=== PATIENT | male | born 1955 | race Caucasian/White ===

== ENCOUNTER 2017-10-10 11:04 | Inpatient (IN) | payer BC ==
--- NOTE | 2017-10-10 11:49 | EDM.PDOC ---
ED HPI GENERAL MEDICAL PROBLEM - General Chief Complaint: Respiratory Problem Stated Complaint: RIG CAGE ON LT SIDE HURTS Time Seen by Provider: 10/10/17 11:35 Source of Information: Reports: Patient History Limitations: Reports: No Limitations - History of Present Illness INITIAL COMMENTS - FREE TEXT/NARRATIVE: HISTORY AND PHYSICAL: History of present illness: [Patient comes to the emergency room by private vehicle complaining of difficulty breathing and pain to his left ribs. He states that on Tuesday evening he was at a friend's home, when he tripped and fell, hitting his left anterior lateral ribs against the corner of a pool table. He had been drinking that night. Since that time he's had pain to this area of his chest, as well as difficulty breathing. This has gradually worsened over the past couple of days. Is unable to cough up any sputum in his chest due to the pain. Also experiences pain with taking deep breaths. He has a history of COPD but does not smoke currently. He uses albuterol as needed per nebulizer. Unknown fever or chills. Denies any pain in his chest other than to his ribs. Painful to take a deep breath and finds that he is breathing harder than usual. No sore throat runny nose or ear pain. No abdominal discomfort nausea or vomiting. Has had a decreased appetite. No change in his bowel or bladder. Denies muscle and joint aches or pains. No body aches.] Review of systems: As per history of present illness and below otherwise all systems reviewed and negative. Past medical history: As per history of present illness and as reviewed below otherwise noncontributory. Surgical history: As per history of present illness and as reviewed below otherwise noncontributory. Social history: No reported history of drug or alcohol abuse. Family history: As per history of present illness and as reviewed below otherwise noncontributory. Physical exam: VS reviewed by me. 89% on RA. Increases to 92-93% on 8L per face mask. HEENT: Atraumatic, normocephalic. Both eyes are red rimmed. Conjunctiva clear. Mucous membranes moist. Neck supple, no lymphadenopathy, trachea midline Lungs: Diminished breath sounds in L lower lobe, present in apices. Lungs are otherwise clear to auscultation. Heart: S1S2, regular rate and rhythm. Abdomen: Soft, nondistended, nontender. Negative for masses, guarding or rebound. Pelvis: Stable nontender. Genitourinary: Deferred. Rectal: Deferred. Extremities: Atraumatic, negative for cords or calf pain. Neurovascular unremarkable. Neuro: Awake, alert, oriented. Motor and sensory unremarkable throughout. Exam nonfocal. Diagnostics: [CBC, CMP, UA, lactic acid, chest x-ray, blood cultures 2, EKG] Therapeutics: [1 liter NS at 500mL/hour, Levaquin 500mg IV, Levaquin 250mg IV] Impression: [Pneumonia Hypoxia] Plan: [Chest x-ray shows pulmonary infiltrates bilaterally, likely representing pneumonia. WBC 16.73, lactate 1.3. Sodium 135. BUN 23. Creatinine 1.2. Patient' s condition is discussed w/ Dr. Curt Mckeon who accepts patient for inpatient treatment. additional dose of Levaquin 250mg is added to 500mg that is running. ] Definitive disposition and diagnosis as appropriate pending reevaluation and review of above. Left Chest Pain Score (Numeric/FACES): 7 - Related Data Allergies Allergy/AdvReac Type Severity Reaction Status Date / Time No Known Allergies Allergy Verified 05/05/16 10:37 Home Meds: Home Meds Albuterol Sulfate 10/10/17 [History] Aspirin 10/10/17 [History] Past Medical History HEENT History: Reports: Hard of Hearing Respiratory History: Reports: COPD - Past Surgical History Musculoskeletal Surgical History: Reports: Other (See Below) Other Musculoskeletal Surgeries/Procedures:: knuckle replaced R [id number] Social & Family History - Family History Family Medical History: Noncontributory - Tobacco Use Smoking Status *Q: Former Smoker Used Tobacco, but Quit: Yes Month Tobacco Last Used: 08/2009 - Recreational Drug Use Recreational Drug Use: No ED ROS GENERAL - Review of Systems Review Of Systems: ROS reveals no pertinent complaints other than HPI. ED EXAM, GENERAL - Physical Exam Exam: See Below Course - Vital Signs Last Recorded V/S: Last Vital Signs Temp 98.7 F 10/10/17 13:26 Pulse 89 10/10/17 13:26 Resp 18 10/10/17 13:26 BP 115/74 10/10/17 13:26 Pulse Ox 93 L 10/10/17 13:26 - Orders/Labs/Meds Orders: Active Orders 24 hr Category Date Time Status Patient Status [ADT] Stat ADT 10/10/17 13:46 Ordered EKG Documentation Completion [RC] STAT Care 10/10/17 12:21 Active CULTURE BLOOD [BC] Stat Lab 10/10/17 12:50 Received CULTURE BLOOD [BC] Stat Lab 10/10/17 13:00 Received Levofloxacin/Dextrose 5%-Water [Levaquin in D5W 250 MG/ Med 10/10/17 13:46 Ordered 50 ML] 250 mg Premix Bag 1 bag IV ONETIME Sodium Chloride 0.9% [Normal Saline] 1,000 ml Med 10/10/17 12:28 Active IV STAT Blood Culture x2 Reflex Set [OM.PC] Stat Oth 10/10/17 12:17 Ordered Medication Orders Sodium Chloride (Normal Saline) 1,000 mls @ 500 mls/hr IV STAT ONE Stop: 10/10/17 14:27 Last Admin: 10/10/17 13:00 Dose: 500 mls/hr Levofloxacin/Dextrose 250 mg/ (Premix) 50 mls @ 50 mls/hr IV ONETIME ONE Stop: 10/10/17 14:45 Labs: Laboratory Tests 10/10/17 10/10/17 10/10/17 Range/Units 11:43 11:43 13:00 WBC 16.73 H (4.0-11.0) K/uL RBC 5.58 (4.50-5.90) M/uL Hgb 18.3 H (13.0-17.0) g/dL Hct 50.8 H (38.0-50.0) % MCV 91.0 (80.0-98.0) fL MCH 32.8 H (27.0-32.0) pg MCHC 36.0 (31.0-37.0) g/dL RDW Std Deviation 49.5 (28.0-62.0) fl RDW Coeff of Monica 15 (11.0-15.0) % Plt Count 175 (150-400) K/uL MPV 9.00 (7.40-12.00) fL Add Manual Diff YES Neutrophils % (Manual) 91 H (48.0-80.0) % Lymphocytes % (Manual) 5 L (16.0-40.0) % Monocytes % (Manual) 3 (0.0-15.0) % Eosinophils % (Manual) 1 (0.0-7.0) % Nucleated RBC % 0.0 /100WBC Absolute Seg Neuts 15.2 H (1.4-5.7) Lymphocytes # (Manual) 0.8 (0.6-2.4) Monocytes # (Manual) 0.5 (0.0-0.8) Eosinophils # (Manual) 0.2 (0.0-0.7) Nucleated RBCs # 0 K/uL Lactate 1.3 (0.20-2.00) mmol/L Sodium 135 L (136-148) mmol/L Potassium 4.1 (3.5-5.1) mmol/L Chloride 99 (98-107) mmol/L Carbon Dioxide 22.5 (21.0-32.0) mmol/L BUN 23 H (7.0-18.0) mg/dL Creatinine 1.2 (0.8-1.3) mg/dL Est Cr Clr Drug Dosing TNP Estimated GFR (MDRD) > 60.0 ml/min Glucose 85 (74-106) mg/dL Calcium 8.8 (8.5-10.1) mg/dL Total Bilirubin 0.5 (0.2-1.0) mg/dL AST 17 (15-37) U/L ALT 12 L (14-63) U/L Alkaline Phosphatase 84 (46-116) U/L Total Protein 7.1 (6.4-8.2) g/dL Albumin 2.9 L (3.4-5.0) g/dL Globulin 4.2 H (2.0-3.5) g/dL Albumin/Globulin Ratio 0.7 L (1.3-2.8) Meds: Medications Generic Name Dose Route Start Last Admin Trade Name Freq PRN Reason Stop Dose Admin Sodium Chloride 1,000 mls @ 500 mls/hr 10/10/17 12:28 10/10/17 13:00 Normal Saline IV 10/10/17 14:27 500 mls/hr STAT ONE Administration Levofloxacin/Dextrose 250 mg/ 50 mls @ 50 mls/hr 10/10/17 13:46 Premix IV 10/10/17 14:45 ONETIME ONE Discontinued Medications Generic Name Dose Route Start Last Admin Trade Name Freq PRN Reason Stop Dose Admin Levofloxacin/Dextrose 500 mg/ 100 mls @ 100 mls/hr 10/10/17 12:28 10/10/17 12 :59 Premix IV 10/10/17 13:27 100 mls/hr ONETIME ONE Administration Departure - Departure Time of Disposition: 13:50 Disposition: Admitted As Inpatient 66 Condition: Good Clinical Impression: Pneumonia, Hypoxia - Discharge Information Referrals: Partha Lopez MD [Primary Care Provider] - Forms: ED Department Discharge - My Orders Last 24 Hours: My Active Orders 10/10/17 12:17 Blood Culture x2 Reflex Set [OM.PC] Stat 10/10/17 12:21 EKG Documentation Completion [RC] STAT 10/10/17 12:28 Sodium Chloride 0.9% [Normal Saline] 1,000 ml IV STAT 10/10/17 12:50 CULTURE BLOOD [BC] Stat 10/10/17 13:00 CULTURE BLOOD [BC] Stat 10/10/17 13:46 Patient Status [ADT] Stat Levofloxacin/Dextrose 5%-Water [Levaquin in D5W 250 MG/50 ML] 250 mg Premix Bag 1 bag IV ONETIME - Assessment/Plan Last 24 Hours: My Active Orders 10/10/17 12:17 Blood Culture x2 Reflex Set [OM.PC] Stat 10/10/17 12:21 EKG Documentation Completion [RC] STAT 10/10/17 12:28 Sodium Chloride 0.9% [Normal Saline] 1,000 ml IV STAT 10/10/17 12:50 CULTURE BLOOD [BC] Stat 10/10/17 13:00 CULTURE BLOOD [BC] Stat 10/10/17 13:46 Patient Status [ADT] Stat Levofloxacin/Dextrose 5%-Water [Levaquin in D5W 250 MG/50 ML] 250 mg Premix Bag 1 bag IV ONETIME
--- NOTE | 2017-10-10 12:15 | CR ---
EXAMINATION: Two-view chest (PA and Lateral views). HISTORY: Shortness of breath. FINDINGS: The trachea is midline. The cardiomediastinal silhouette is within normal limits. Patchy infiltrate i s noted within the right perihilar distribution and lung bases, left greater than right. There is lik wilder a small left pleural effusion however predominantly consolidation. Osseous structures appear unremarkable. IMPRESSION: Pulmonary infiltrates bilaterally most prominently in within the left lung base. Likely represents a pneumonia. Small component of pleural effusion is not excluded.
[2017-10-10] MEDS ORDERED: Levofloxacin/Dextrose 5%-Water 500 MG in Premix Bag 1 BAG IV ONE (12:28)
[2017-10-10] MEDS ORDERED: Sodium Chloride 0.9% 1,000 ML IV ONE (12:28)
[2017-10-10 12:35] LABS: CHLORIDE,CL 99 mmol/L (98-107); SODIUM,NA 135 mmol/L (136-148)
[2017-10-10] MEDS ORDERED: Levofloxacin/Dextrose 5%-Water 250 MG in Premix Bag 1 BAG IV ONE (13:46)
[2017-10-10] MEDS ORDERED: Sodium Chloride 0.9% 10 ML Syringe FLUSH PRN (17:23)
[2017-10-10] MEDS ORDERED: Albuterol/Ipratropium 3.0-0.5 MG/3 ML Neb Soln NEB PRN (17:23)
[2017-10-10] MEDS ORDERED: Ondansetron 4 MG/2 ML SDV IVPUSH PRN (17:23)
[2017-10-10] MEDS ORDERED: Sodium Chloride 0.9% 2.5 ML Syringe FLUSH PRN (17:23)
[2017-10-10] MEDS: Enoxaparin 40 MG/0.4 ML Syringe SUBCUT SCH (17:47)
[2017-10-10] MEDS: Morphine 2 MG/ML Syringe IVPUSH PRN (17:47)
[2017-10-10] MEDS: Sodium Chloride 0.9% 1,000 ML IV SCH (17:49)
--- NOTE | 2017-10-10 18:17 | PCM.HP ---
H&P History of Present Illness - General Date of Service: 10/10/17 Admit Problem/Dx: Admission Diagnosis/Problem Admission Diagnosis/Problem Pneumonia - History of Present Illness Initial Comments - Free Text/Narative: 52-year-old male who presents today secondary to feeling unwell, shortness of breath, elevated temperatures that has been ongoing sometime. Patient in February was diagnosed with left lower lung base community-acquired pneumonia for which he received treatment. However due to the fact that he was having lower chest pain that was similar to his diagnosis back in her life, as a result he came into the ER today for which he was found to have an elevated WBC count, chest x-ray showed bilateral lower lung base infection. Patient in the ER was then given IV Levaquin and subsequently admitted due to increased oxygen requirement, and IV antibiotics for his bilateral lower lung base pneumonia. Left Chest Pain Score (Numeric/FACES): 7 - Related Data Allergies/Adverse Reactions: Allergies Allergy/AdvReac Type Severity Reaction Status Date / Time No Known Allergies Allergy Verified 05/05/16 10:37 Home Medications: Home Meds Albuterol Sulfate 10/10/17 [History] Aspirin 10/10/17 [History] Past Medical History HEENT History: Reports: Hard of Hearing Respiratory History: Reports: COPD - Past Surgical History Respiratory Surgical History: Reports: None Musculoskeletal Surgical History: Reports: Other (See Below) Other Musculoskeletal Surgeries/Procedures:: knuckle replaced R [id number] Social & Family History - Family History Family Medical History: Noncontributory - Tobacco Use Smoking Status *Q: Former Smoker Used Tobacco, but Quit: Yes Month Tobacco Last Used: 8 years ago Second Hand Smoke Exposure: No - Caffeine Use Caffeine Use: Reports: Coffee - Recreational Drug Use Recreational Drug Use: No H&P Review of Systems - Review of Systems: Review Of Systems: ROS reveals no pertinent complaints other than HPI. Exam - Exam Exam: See Below - Vital Signs Vital Signs: Last Vital Signs Temp 37.2 C 10/10/17 14:35 Pulse 105 H 10/10/17 14:35 Resp 20 10/10/17 14:35 BP 133/79 10/10/17 14:35 Pulse Ox 95 10/10/17 17:26 Weight: 66.633 kg - Exam Quality Assessment: Supplemental Oxygen General: Alert, Oriented, Cooperative, Mild Distress Lungs: Wheezing Cardiovascular: Regular Rate, Regular Rhythm GI/Abdominal Exam: Normal Bowel Sounds Extremities: Non-Tender, No Pedal Edema - Patient Data Result Diagrams: 10/10/17 11:43 10/10/17 11:43 *Q Meaningful Use (ADM) - VTE *Q VTE Criteria *Q: - Stroke *Q Stroke Criteria *Q: - AMI *Q AMI Criteria *Q: Problem List Initiated/Reviewed/Updated: Yes Orders Last 24hrs: Active Orders 24 hr Category Date Time Status Patient Status [ADT] Routine ADT 10/10/17 17:24 Active Antiembolic Devices [RC] PER UNIT ROUTINE Care 10/10/17 17:27 Active Height and Weight [RC] UPON Care 10/10/17 17:23 Active Intake and Output [RC] QSHIFT Care 10/10/17 17:26 Active Notify Provider Vital Signs [RC] ASDIRECTED Care 10/10/17 17:26 Active Oxygen Therapy [RC] PRN Care 10/10/17 17:24 Active Pulse Oximetry [RC] PRN Care 10/10/17 17:26 Active RT Aerosol Therapy [RC] ASDIRECTED Care 10/10/17 17:30 Active Up With Assistance [RC] ASDIRECTED Care 10/10/17 17:23 Active VTE/DVT Education [RC] PER UNIT ROUTINE Care 10/10/17 17:24 Active Vital Signs [RC] Q4H Care 10/10/17 17:24 Active Regular Diet [DIET] Diet 10/10/17 Dinner Active CBC WITH AUTO DIFF [HEME] AM Lab 10/11/17 05:11 Ordered COMPREHENSIVE METABOLIC PN,CMP [CHEM] AM Lab 10/11/17 05:11 Ordered CULTURE SPUTUM + SMEAR [RM] Routine Lab 10/10/17 17:23 Ordered Acetaminophen [Tylenol] Med 10/10/17 17:23 Active 650 mg PO Q4H PRN Albuterol/Ipratropium [DuoNeb 3.0-0.5 MG/3 ML] Med 10/10/17 17:23 Active 3 ml NEB Q4HRRT PRN Enoxaparin [Lovenox] Med 10/10/17 17:30 Active 40 mg SUBCUT Q24H Morphine Med 10/10/17 17:23 Active 2 mg IVPUSH Q2H PRN Ondansetron [Zofran] Med 10/10/17 17:23 Active 4 mg IVPUSH Q4H PRN Sodium Chloride 0.9% [Normal Saline] 1,000 ml Med 10/10/17 17:30 Active IV ASDIRECTED Sodium Chloride 0.9% [Saline Flush] Med 10/10/17 17:23 Active 10 ml FLUSH ASDIRECTED PRN Sodium Chloride 0.9% [Saline Flush] Med 10/10/17 17:23 Active 2.5 ml FLUSH ASDIRECTED PRN Peripheral IV Insertion Adult [OM.PC] Routine Oth 10/10/17 17:23 Ordered Saline Lock Insert [OM.PC] Routine Oth 10/10/17 17:23 Ordered Sequential Compression Device [OM.PC] Per Unit Routine Oth 10/10/17 17:27 Ordered Resuscitation Status Routine Resus Stat 10/10/17 17:23 Ordered Medication Orders Acetaminophen (Tylenol) 650 mg PO Q4H PRN PRN Reason: Pain (Mild 1-3)/fever Albuterol/Ipratropium (Duoneb 3.0-0.5 Mg/3 Ml) 3 ml NEB Q4HRRT PRN PRN Reason: Shortness Of Breath/wheezing Enoxaparin Sodium (Lovenox) 40 mg SUBCUT Q24H [facility] Last Admin: 10/10/17 17:47 Dose: 40 mg Sodium Chloride (Normal Saline) 1,000 mls @ 125 mls/hr IV ASDIRECTED [facility] Last Admin: 10/10/17 17:49 Dose: 125 mls/hr Morphine Sulfate (Morphine) 2 mg IVPUSH Q2H PRN PRN Reason: Pain (severe 7-10) Last Admin: 10/10/17 17:47 Dose: 2 mg Ondansetron HCl (Zofran) 4 mg IVPUSH Q4H PRN PRN Reason: Nausea/Vomiting Sodium Chloride (Saline Flush) 10 ml FLUSH ASDIRECTED PRN PRN Reason: Keep Vein Open Sodium Chloride (Saline Flush) 2.5 ml FLUSH ASDIRECTED PRN PRN Reason: Keep Vein Open Assessment/Plan Comment:: 62-year-old male presenting with shortness of breath, chest pain, elevated WBC count secondary to a bilateral lower lung base infiltrate likely infectious in nature. To receive Levaquin IV 750 mg Trend WBC and CBC to ensure back to baseline values O2 support secondary to shortness of breath and increased requirement due to infectious process. I'll continue to follow.
[2017-10-11] MEDS: Morphine 2 MG/ML Syringe IVPUSH PRN ×2 (00:13→08:28)
[2017-10-11] MEDS: Sodium Chloride 0.9% 1,000 ML IV SCH ×2 (02:12→10:17)
[2017-10-11] MEDS: Acetaminophen 325 MG Tab PO PRN ×3 (03:29→21:35)
[2017-10-11 06:06] LABS: CHLORIDE,CL 98 mmol/L (98-107); SODIUM,NA 131 mmol/L (136-148)
[2017-10-11] MEDS: Levofloxacin/Dextrose 5%-Water 750 MG in Premix Bag 1 BAG IV SCH (10:21)
[2017-10-11] MEDS ORDERED: Potassium Chloride 20 MEQ Tab.ER PO ONE ×2 (10:44→13:15)
[2017-10-11] MEDS ORDERED: Magnesium Sulfate/Water 4 GM in Premix Bag 1 BAG IV ONE (10:44)
--- NOTE | 2017-10-11 12:30 | PCM.PN ---
- General Info Date of Service: 10/11/17 Subjective Update: Symptomatically patient is doing slightly better than he did yesterday on presentation. He still having left lower back/chest pain secondary to likely pneumonia infectious process as well as fall on the left side. Patient's vital signs are stable, patient is afebrile, patient does not appear to be in any acute distress at the moment. - Review of Systems General: Reports: Weakness Gastrointestinal: Reports: Abdominal Pain - Patient Data Vitals - Most Recent: Last Vital Signs Temp 37.2 C 10/11/17 11:53 Pulse 88 10/11/17 11:53 Resp 22 H 10/11/17 11:53 BP 110/72 10/11/17 11:53 Pulse Ox 91 L 10/11/17 11:53 Weight - Most Recent: 66.633 kg I&O - Last 24 Hours: Intake & Output 10/10/17 10/11/17 10/11/17 22:59 06:59 14:59 Intake Total 150 999 Output Total 180 Balance -30 999 Lab Results Last 24 Hours: Laboratory Results - last 24 hr 10/11/17 10/11/17 10/11/17 Range/Units 05:08 05:08 05:46 WBC 12.73 H (4.0-11.0) K/uL RBC 4.68 (4.50-5.90) M/uL Hgb 14.9 (13.0-17.0) g/dL Hct 42.9 (38.0-50.0) % MCV 91.7 (80.0-98.0) fL MCH 31.8 (27.0-32.0) pg MCHC 34.7 (31.0-37.0) g/dL RDW Std Deviation 50.1 (28.0-62.0) fl RDW Coeff of Monica 15 (11.0-15.0) % Plt Count 170 (150-400) K/uL MPV 9.30 (7.40-12.00) fL Neut % (Auto) 84.5 H (48.0-80.0) % Lymph % (Auto) 4.9 L (16.0-40.0) % Gilmer % (Auto) 10.2 (0.0-15.0) % Eos % (Auto) 0.2 (0.0-7.0) % Baso % (Auto) 0.2 (0.0-1.5) % Neut # (Auto) 10.8 H (1.4-5.7) K/uL Lymph # (Auto) 0.6 (0.6-2.4) K/uL Gilmer # (Auto) 1.3 H (0.0-0.8) K/uL Eos # (Auto) 0.0 (0.0-0.7) K/uL Baso # (Auto) 0.0 (0.0-0.1) K/uL Nucleated RBC % 0.0 /100WBC Nucleated RBCs # 0 K/uL Sodium 131 L (136-148) mmol/L Potassium 3.2 L (3.5-5.1) mmol/L Chloride 98 (98-107) mmol/L Carbon Dioxide 20.6 L (21.0-32.0) mmol/L BUN 18 (7.0-18.0) mg/dL Creatinine 1.0 (0.8-1.3) mg/dL Est Cr Clr Drug Dosing 72.19 mL/min Estimated GFR (MDRD) > 60.0 ml/min Glucose 107 H (74-106) mg/dL Calcium 8.0 L (8.5-10.1) mg/dL Magnesium 1.4 L (1.5-2.0) mg/dL Total Bilirubin 0.8 (0.2-1.0) mg/dL AST 30 (15-37) U/L ALT 25 (14-63) U/L Alkaline Phosphatase 113 (46-116) U/L Total Protein 5.9 L (6.4-8.2) g/dL Albumin 2.2 L (3.4-5.0) g/dL Globulin 3.7 H (2.0-3.5) g/dL Albumin/Globulin Ratio 0.6 L (1.3-2.8) Phu Results Last 24 Hours: Microbiology 10/10/17 20:35 Gram Stain - Preliminary Sputum - Expectorated Med Orders - Current: Current Medications Acetaminophen (Tylenol) 650 mg PO Q4H PRN PRN Reason: Pain (Mild 1-3)/fever Last Admin: 10/11/17 03:29 Dose: 650 mg Albuterol/Ipratropium (Duoneb 3.0-0.5 Mg/3 Ml) 3 ml NEB Q4HRRT PRN PRN Reason: Shortness Of Breath/wheezing Enoxaparin Sodium (Lovenox) 40 mg SUBCUT Q24H [facility] Last Admin: 10/10/17 17:47 Dose: 40 mg Levofloxacin/Dextrose 750 mg/ (Premix) 150 mls @ 100 mls/hr IV Q24H [facility] Last Admin: 10/11/17 10:21 Dose: 100 mls/hr Magnesium Sulfate 4 gm/ Premix 100 mls @ 50 mls/hr IV ONETIME ONE Stop: 10/11/17 12:43 Morphine Sulfate (Morphine) 2 mg IVPUSH Q2H PRN PRN Reason: Pain (severe 7-10) Last Admin: 10/11/17 08:28 Dose: 2 mg Ondansetron HCl (Zofran) 4 mg IVPUSH Q4H PRN PRN Reason: Nausea/Vomiting Sodium Chloride (Saline Flush) 10 ml FLUSH ASDIRECTED PRN PRN Reason: Keep Vein Open Sodium Chloride (Saline Flush) 2.5 ml FLUSH ASDIRECTED PRN PRN Reason: Keep Vein Open Discontinued Medications Levofloxacin/Dextrose 500 mg/ (Premix) 100 mls @ 100 mls/hr IV ONETIME ONE Stop: 10/10/17 13:27 Last Admin: 10/10/17 12:59 Dose: 100 mls/hr Sodium Chloride (Normal Saline) 1,000 mls @ 500 mls/hr IV STAT ONE Stop: 10/10/17 14:27 Last Admin: 10/10/17 13:00 Dose: 500 mls/hr Levofloxacin/Dextrose 250 mg/ (Premix) 50 mls @ 50 mls/hr IV ONETIME ONE Stop: 10/10/17 14:45 Last Admin: 10/10/17 14:20 Dose: 50 mls/hr Sodium Chloride (Normal Saline) 1,000 mls @ 125 mls/hr IV ASDIRECTED [facility] Last Admin: 10/11/17 10:17 Dose: 125 mls/hr Potassium Chloride (Klor-Con M20) 40 meq PO ONETIME ONE Stop: 10/11/17 10:45 - Exam Quality Assessment: Supplemental Oxygen General: Alert, Oriented, Cooperative, No Acute Distress Neck: Supple Lungs: Clear to Auscultation, Decreased Breath Sounds, Other (On palpation. On the left lower chest and very tearful and infectious process) Cardiovascular: Regular Rate, Regular Rhythm GI/Abdominal Exam: Normal Bowel Sounds Extremities: Normal Range of Motion, Non-Tender, No Pedal Edema - Problem List Review Problem List Initiated/Reviewed/Updated: Yes - My Orders Last 24 Hours: My Active Orders 10/10/17 17:23 Height and Weight [RC] UPON Up With Assistance [RC] ASDIRECTED Acetaminophen [Tylenol] 650 mg PO Q4H PRN Albuterol/Ipratropium [DuoNeb 3.0-0.5 MG/3 ML] 3 ml NEB Q4HRRT PRN Morphine 2 mg IVPUSH Q2H PRN Ondansetron [Zofran] 4 mg IVPUSH Q4H PRN Sodium Chloride 0.9% [Saline Flush] 10 ml FLUSH ASDIRECTED PRN Sodium Chloride 0.9% [Saline Flush] 2.5 ml FLUSH ASDIRECTED PRN Peripheral IV Insertion Adult [OM.PC] Routine Saline Lock Insert [OM.PC] Routine Resuscitation Status Routine 10/10/17 17:24 Patient Status [ADT] Routine Oxygen Therapy [RC] PRN VTE/DVT Education [RC] PER UNIT ROUTINE Vital Signs [RC] Q4H 10/10/17 17:26 Intake and Output [RC] QSHIFT Notify Provider Vital Signs [RC] ASDIRECTED Pulse Oximetry [RC] PRN 10/10/17 17:27 Antiembolic Devices [RC] PER UNIT ROUTINE Sequential Compression Device [OM.PC] Per Unit Routine 10/10/17 17:30 RT Aerosol Therapy [RC] ASDIRECTED Enoxaparin [Lovenox] 40 mg SUBCUT Q24H 10/10/17 20:35 CULTURE SPUTUM + SMEAR [RM] Routine 10/11/17 09:30 Levofloxacin/Dextrose 5%-Water [Levaquin in D5W 750 MG/150 ML] 750 mg Premix Bag 1 bag IV Q24H - Plan Plan:: 62-year-old male presenting with shortness of breath, chest pain, elevated WBC count secondary to a bilateral lower lung base infiltrate likely infectious in nature. To receive Levaquin IV 750 mg Patient's sputum culture does appear to be growing gram-positive and possibly gram-negative bacteria. Sputum sample was not the greatest we will await for colonization prior to deciding whether to switch up antibiotic regimen. However if the patient does have unstable vital signs, spikes in elevated temperature then we may decide to broaden the patient's antibiotic coverage. Patient has hypokalemia/hypomagnesemia -40 mEq one-time potassium chloride oral tablet -4 g IV mag -Shall reassess in the a.m. to ensure hypokalemia and hypomagnesemia are appropriate Trend WBC and CBC to ensure back to baseline values O2 support secondary to shortness of breath and increased requirement due to infectious process. I'll continue to follow.
[2017-10-11] MEDS: Enoxaparin 40 MG/0.4 ML Syringe SUBCUT SCH (17:55)
[2017-10-12 06:02] LABS: CHLORIDE,CL 100 mmol/L (98-107); SODIUM,NA 134 mmol/L (136-148)
[2017-10-12] MEDS: Acetaminophen 325 MG Tab PO PRN ×3 (07:39→17:22)
[2017-10-12] MEDS: Levofloxacin/Dextrose 5%-Water 750 MG in Premix Bag 1 BAG IV SCH (09:12)
--- NOTE | 2017-10-12 10:48 | PCM.PN ---
- General Info Date of Service: 10/12/17 Subjective Update: Patient is improving from a chest discomfort standpoint. He is using his spirometry often and is ambulating. Currently still on O2 of 4 liters, IV levaquin, and Duo nebs prn. Patient denies any shortness of breath, nausea, vomiting, diarrhea. - Review of Systems General: Reports: Fatigue Pulmonary: Reports: Sputum - Patient Data Vitals - Most Recent: Last Vital Signs Temp 37.6 C 10/12/17 07:43 Pulse 96 10/12/17 07:43 Resp 18 10/12/17 07:43 BP 115/77 10/12/17 07:43 Pulse Ox 90 L 10/12/17 07:43 Weight - Most Recent: 66.633 kg I&O - Last 24 Hours: Intake & Output 10/11/17 10/12/17 10/12/17 22:59 06:59 14:59 Intake Total 1200 600 Output Total 1325 700 Balance -125 -100 Lab Results Last 24 Hours: Laboratory Results - last 24 hr 10/12/17 10/12/17 Range/Units 04:59 04:59 WBC 11.39 H (4.0-11.0) K/uL RBC 5.00 (4.50-5.90) M/uL Hgb 16.0 (13.0-17.0) g/dL Hct 45.9 (38.0-50.0) % MCV 91.8 (80.0-98.0) fL MCH 32.0 (27.0-32.0) pg MCHC 34.9 (31.0-37.0) g/dL RDW Std Deviation 49.3 (28.0-62.0) fl RDW Coeff of Monica 15 (11.0-15.0) % Plt Count 180 (150-400) K/uL MPV 9.40 (7.40-12.00) fL Neut % (Auto) 81.4 H (48.0-80.0) % Lymph % (Auto) 5.8 L (16.0-40.0) % [place] % (Auto) 12.2 (0.0-15.0) % Eos % (Auto) 0.4 (0.0-7.0) % Baso % (Auto) 0.2 (0.0-1.5) % Neut # (Auto) 9.3 H (1.4-5.7) K/uL Lymph # (Auto) 0.7 (0.6-2.4) K/uL [place] # (Auto) 1.4 H (0.0-0.8) K/uL Eos # (Auto) 0.1 (0.0-0.7) K/uL Baso # (Auto) 0.0 (0.0-0.1) K/uL Nucleated RBC % 0.0 /100WBC Nucleated RBCs # 0 K/uL Sodium 134 L (136-148) mmol/L Potassium 3.6 (3.5-5.1) mmol/L Chloride 100 (98-107) mmol/L Carbon Dioxide 23.6 (21.0-32.0) mmol/L BUN 15 (7.0-18.0) mg/dL Creatinine 0.9 (0.8-1.3) mg/dL Est Cr Clr Drug Dosing 80.21 mL/min Estimated GFR (MDRD) > 60.0 ml/min Glucose 77 (74-106) mg/dL Calcium 8.6 (8.5-10.1) mg/dL Total Bilirubin 0.8 (0.2-1.0) mg/dL AST 27 (15-37) U/L ALT 28 (14-63) U/L Alkaline Phosphatase 130 H (46-116) U/L Total Protein 6.5 (6.4-8.2) g/dL Albumin 2.2 L (3.4-5.0) g/dL Globulin 4.3 H (2.0-3.5) g/dL Albumin/Globulin Ratio 0.5 L (1.3-2.8) Phu Results Last 24 Hours: Microbiology 10/10/17 20:35 Gram Stain - Final Sputum - Expectorated Sputum Culture - Final Normal Respiratory Luh YEAST Med Orders - Current: Current Medications Acetaminophen (Tylenol) 650 mg PO Q4H PRN PRN Reason: Pain (Mild 1-3)/fever Last Admin: 10/12/17 07:39 Dose: 650 mg Albuterol/Ipratropium (Duoneb 3.0-0.5 Mg/3 Ml) 3 ml NEB Q4HRRT PRN PRN Reason: Shortness Of Breath/wheezing Enoxaparin Sodium (Lovenox) 40 mg SUBCUT Q24H [facility] Last Admin: 10/11/17 17:55 Dose: 40 mg Levofloxacin/Dextrose 750 mg/ (Premix) 150 mls @ 100 mls/hr IV Q24H [facility] Last Admin: 10/12/17 09:12 Dose: 100 mls/hr Morphine Sulfate (Morphine) 2 mg IVPUSH Q2H PRN PRN Reason: Pain (severe 7-10) Last Admin: 10/11/17 08:28 Dose: 2 mg Ondansetron HCl (Zofran) 4 mg IVPUSH Q4H PRN PRN Reason: Nausea/Vomiting Sodium Chloride (Saline Flush) 10 ml FLUSH ASDIRECTED PRN PRN Reason: Keep Vein Open Sodium Chloride (Saline Flush) 2.5 ml FLUSH ASDIRECTED PRN PRN Reason: Keep Vein Open Discontinued Medications Levofloxacin/Dextrose 500 mg/ (Premix) 100 mls @ 100 mls/hr IV ONETIME ONE Stop: 10/10/17 13:27 Last Admin: 10/10/17 12:59 Dose: 100 mls/hr Sodium Chloride (Normal Saline) 1,000 mls @ 500 mls/hr IV STAT ONE Stop: 10/10/17 14:27 Last Admin: 10/10/17 13:00 Dose: 500 mls/hr Levofloxacin/Dextrose 250 mg/ (Premix) 50 mls @ 50 mls/hr IV ONETIME ONE Stop: 10/10/17 14:45 Last Admin: 10/10/17 14:20 Dose: 50 mls/hr Sodium Chloride (Normal Saline) 1,000 mls @ 125 mls/hr IV ASDIRECTED [facility] Last Admin: 10/11/17 10:17 Dose: 125 mls/hr Magnesium Sulfate 4 gm/ Premix 100 mls @ 50 mls/hr IV ONETIME ONE Stop: 10/11/17 12:43 Last Admin: 10/11/17 13:10 Dose: 50 mls/hr Potassium Chloride (Klor-Con M20) 40 meq PO ONETIME ONE Stop: 10/11/17 13:16 Last Admin: 10/11/17 13:10 Dose: 40 meq - Exam Quality Assessment: Supplemental Oxygen General: Alert, Oriented, Cooperative Neck: Supple Lungs: Clear to Auscultation, Normal Respiratory Effort, Decreased Breath Sounds Cardiovascular: Regular Rate, Regular Rhythm GI/Abdominal Exam: Normal Bowel Sounds Extremities: Normal Inspection, Normal Range of Motion, Non-Tender - Problem List Review Problem List Initiated/Reviewed/Updated: Yes - Plan Plan:: 62-year-old male presenting with shortness of breath, chest pain, elevated WBC count secondary to a bilateral lower lung base infiltrate likely infectious in nature. To receive Levaquin IV 750 mg Patient's sputum culture is growing normal respiratory luh. She'll continue the Levaquin 750 daily. At this point in time patient is still requiring 4 L of oxygen, we will continue to titrate until he gets his baseline of rheumatoid air. Patient is encouraged to walk/ambulate. Hypokalemia/hypomagnesemia- now resolved Trend WBC and CBC to ensure back to baseline values O2 support secondary to shortness of breath and increased requirement due to infectious process. I'll continue to follow.
[2017-10-12] MEDS: Enoxaparin 40 MG/0.4 ML Syringe SUBCUT SCH (17:22)
[2017-10-13] MEDS: Acetaminophen 325 MG Tab PO PRN ×2 (00:43→12:28)
[2017-10-13] MEDS: Levofloxacin/Dextrose 5%-Water 750 MG in Premix Bag 1 BAG IV SCH (09:28)
[2017-10-13 10:29] LABS: CHLORIDE,CL 97 mmol/L (98-107); SODIUM,NA 134 mmol/L (136-148)
--- NOTE | 2017-10-13 11:52 | PCM.DCSUM1 ---
<Sylvester Hogan Z - Last Filed: 10/13/17 18:24> Discharge Summary - Hospital Course HPI Initial Comments: Discharge Summary Date of admission: 10/10/2017 Date of discharge: 10/13/2017 Admitting diagnosis: #1. Shortness of breath, chest pain, leukocytosis secondary to bilateral lower lung infiltrate #2. #3. #4. #5. Discharge diagnoses: #1. Bilateral lower lung pneumonia now resolving #2. Shortness of breath improving #3. #4. #5. Consultations: None Procedures: None Hospitalization course: Patient was admitted to the floor secondary to bilateral lower lobe pneumonia. Patient was put on Levaquin for his bacterial symptoms. Patient also was requiring dual nebs when necessary as well as increased oxygen support of 4 L. Patient progressively did better from a infectious standpoint. His leukocytosis resolved, his primary difficulty stabilize with shortness of breath and O2 requirement which did take another day until it was fully resolved. On the date of discharge on 10/13/2017 patient was on room air, his leukocytosis had resolved, and he felt that he was stable enough to go home. Patient was sent home on Levaquin for another 5 days, continuation of his dual nebs that were prescribed to him by his PCP, an additional prescription of an albuterol inhaler as well as a long-acting laba/ inhaled corticosteroid since the patient did indicate just prior to being discharged that he was requiring the dual nebs at times to 3 times a day so it was felt that the patient likely needed increased support and a proper outpatient evaluation of his pulmonary symptoms to assess for uncontrolled asthma versus COPD. Disposition on discharge: Home Condition on discharge: Stable Discharge medications: Levaquin 750 daily for 5 days, albuterol inhaler, Advair , continuation of dual nebs Follow-up instructions: Follow-up with primary care physician Dr. Lopez - Discharge Data Discharge Date: 10/13/17 Discharge Disposition: Home, Self-Care 01 Condition: Fair - Patient Instructions Diet: Usual Diet as Tolerated Activity: As Tolerated Driving: May Drive Today Showering/Bathing: May Shower Notify Provider of: Fever, Increased Pain, Swelling and Redness, Drainage, Nausea and/or Vomiting - Discharge Plan Prescriptions/Med Rec: Albuterol [IJD: Albuterol HFA] 1 puff .XX Q4H PRN 30 Days #8 gm PRN Reason: Shortness Of Breath Fluticasone/Salmeterol [Advair Hfa 230-21 Mcg Inhaler] 1 puff IH BID 30 Days #1 aer.w.adap Levofloxacin [Levaquin] 750 mg PO DAILY 5 Days #5 tablet Home Medications: Home Meds Albuterol Sulfate 10/10/17 [History] Aspirin 10/10/17 [History] Albuterol [IJD: Albuterol HFA] 1 puff .XX Q4H PRN 30 Days #8 gm 10/13/17 [Rx] Fluticasone/Salmeterol [Advair Hfa 230-21 Mcg Inhaler] 1 puff IH BID 30 Days #1 aer.w.adap 10/13/17 [Rx] Levofloxacin [Levaquin] 750 mg PO DAILY 5 Days #5 tablet 10/13/17 [Rx] Patient Handouts: Albuterol inhalation powder, Fluticasone; Salmeterol inhalation powder, Levofloxacin tablets, Community-Acquired Pneumonia, Adult, [id number] - Discharge Summary/Plan Comment DC Time >30 min.: No - Patient Data Vitals - Most Recent: Last Vital Signs Temp 37.1 C 10/13/17 07:31 Pulse 96 10/13/17 07:31 Resp 20 10/13/17 07:31 BP 108/80 10/13/17 07:31 Pulse Ox 90 L 10/13/17 07:31 Weight - Most Recent: 66.633 kg I&O - Last 24 hours: Intake & Output 10/12/17 10/13/17 10/13/17 22:59 06:59 14:59 Intake Total 1469 600 150 Output Total 860 5 Balance 609 595 150 Lab Results - Last 24 hrs: Laboratory Results - last 24 hr 10/13/17 10/13/17 Range/Units 09:39 09:39 WBC 13.22 H (4.0-11.0) K/uL RBC 4.77 (4.50-5.90) M/uL Hgb 15.2 (13.0-17.0) g/dL Hct 43.7 (38.0-50.0) % MCV 91.6 (80.0-98.0) fL MCH 31.9 (27.0-32.0) pg MCHC 34.8 (31.0-37.0) g/dL RDW Std Deviation 48.4 (28.0-62.0) fl RDW Coeff of Monica 14 (11.0-15.0) % Plt Count 191 (150-400) K/uL MPV 8.90 (7.40-12.00) fL Neut % (Auto) 85.0 H (48.0-80.0) % Lymph % (Auto) 2.8 L (16.0-40.0) % [place] % (Auto) 11.8 (0.0-15.0) % Eos % (Auto) 0.2 (0.0-7.0) % Baso % (Auto) 0.2 (0.0-1.5) % Neut # (Auto) 11.2 H (1.4-5.7) K/uL Lymph # (Auto) 0.4 L (0.6-2.4) K/uL [place] # (Auto) 1.6 H (0.0-0.8) K/uL Eos # (Auto) 0.0 (0.0-0.7) K/uL Baso # (Auto) 0.0 (0.0-0.1) K/uL Nucleated RBC % 0.0 /100WBC Nucleated RBCs # 0 K/uL Sodium 134 L (136-148) mmol/L Potassium 3.5 (3.5-5.1) mmol/L Chloride 97 L (98-107) mmol/L Carbon Dioxide 28.5 (21.0-32.0) mmol/L BUN 13 (7.0-18.0) mg/dL Creatinine 0.9 (0.8-1.3) mg/dL Est Cr Clr Drug Dosing 80.21 mL/min Estimated GFR (MDRD) > 60.0 ml/min Glucose 155 H (74-106) mg/dL Calcium 8.1 L (8.5-10.1) mg/dL Total Bilirubin 0.7 (0.2-1.0) mg/dL AST 24 (15-37) IU/L ALT 31 (14-63) IU/L Alkaline Phosphatase 144 H (46-116) U/L Total Protein 5.3 L (6.4-8.2) g/dL Albumin 2.1 L (3.4-5.0) g/dL Globulin 3.2 (2.0-3.5) g/dL Albumin/Globulin Ratio 0.7 L (1.3-2.8) OTONIEL Results - Last 24 hrs: Microbiology 10/10/17 20:35 Gram Stain - Final Sputum - Expectorated Sputum Culture - Final Normal Respiratory [place] YEAST Med Orders - Current: Current Medications Acetaminophen (Tylenol) 650 mg PO Q4H PRN PRN Reason: Pain (Mild 1-3)/fever Last Admin: 10/13/17 00:43 Dose: 650 mg Albuterol/Ipratropium (Duoneb 3.0-0.5 Mg/3 Ml) 3 ml NEB Q4HRRT PRN PRN Reason: Shortness Of Breath/wheezing Enoxaparin Sodium (Lovenox) 40 mg SUBCUT Q24H [facility] Last Admin: 10/12/17 17:22 Dose: 40 mg Levofloxacin/Dextrose 750 mg/ (Premix) 150 mls @ 100 mls/hr IV Q24H [facility] Last Admin: 10/13/17 09:28 Dose: 100 mls/hr Morphine Sulfate (Morphine) 2 mg IVPUSH Q2H PRN PRN Reason: Pain (severe 7-10) Last Admin: 10/11/17 08:28 Dose: 2 mg Ondansetron HCl (Zofran) 4 mg IVPUSH Q4H PRN PRN Reason: Nausea/Vomiting Sodium Chloride (Saline Flush) 10 ml FLUSH ASDIRECTED PRN PRN Reason: Keep Vein Open Sodium Chloride (Saline Flush) 2.5 ml FLUSH ASDIRECTED PRN PRN Reason: Keep Vein Open Discontinued Medications Levofloxacin/Dextrose 500 mg/ (Premix) 100 mls @ 100 mls/hr IV ONETIME ONE Stop: 10/10/17 13:27 Last Admin: 10/10/17 12:59 Dose: 100 mls/hr Sodium Chloride (Normal Saline) 1,000 mls @ 500 mls/hr IV STAT ONE Stop: 10/10/17 14:27 Last Admin: 10/10/17 13:00 Dose: 500 mls/hr Levofloxacin/Dextrose 250 mg/ (Premix) 50 mls @ 50 mls/hr IV ONETIME ONE Stop: 10/10/17 14:45 Last Admin: 10/10/17 14:20 Dose: 50 mls/hr Sodium Chloride (Normal Saline) 1,000 mls @ 125 mls/hr IV ASDIRECTED [facility] Last Admin: 10/11/17 10:17 Dose: 125 mls/hr Magnesium Sulfate 4 gm/ Premix 100 mls @ 50 mls/hr IV ONETIME ONE Stop: 10/11/17 12:43 Last Admin: 10/11/17 13:10 Dose: 50 mls/hr Potassium Chloride (Klor-Con M20) 40 meq PO ONETIME ONE Stop: 10/11/17 13:16 Last Admin: 10/11/17 13:10 Dose: 40 meq *Q Meaningful Use (DIS) - VTE *Q VTE Criteria *Q: - Stroke *Q Stroke Criteria *Q: - AMI *Q AMI Criteria *Q: <Curt Mckeon - Last Filed: 10/13/17 20:39> - Patient Data Vitals - Most Recent: Last Vital Signs Temp 38.1 C 10/13/17 12:01 Pulse 96 10/13/17 07:31 Resp 18 10/13/17 12:01 BP 111/78 10/13/17 12:01 Pulse Ox 90 L 10/13/17 07:31 I&O - Last 24 hours: Intake & Output 10/13/17 10/13/17 10/13/17 06:59 14:59 22:59 Intake Total 600 1600 Output Total 5 800 Balance 595 800 Lab Results - Last 24 hrs: Laboratory Results - last 24 hr 10/13/17 10/13/17 Range/Units 09:39 09:39 WBC 13.22 H (4.0-11.0) K/uL RBC 4.77 (4.50-5.90) M/uL Hgb 15.2 (13.0-17.0) g/dL Hct 43.7 (38.0-50.0) % MCV 91.6 (80.0-98.0) fL MCH 31.9 (27.0-32.0) pg MCHC 34.8 (31.0-37.0) g/dL RDW Std Deviation 48.4 (28.0-62.0) fl RDW Coeff of Monica 14 (11.0-15.0) % Plt Count 191 (150-400) K/uL MPV 8.90 (7.40-12.00) fL Neut % (Auto) 85.0 H (48.0-80.0) % Lymph % (Auto) 2.8 L (16.0-40.0) % [place] % (Auto) 11.8 (0.0-15.0) % Eos % (Auto) 0.2 (0.0-7.0) % Baso % (Auto) 0.2 (0.0-1.5) % Neut # (Auto) 11.2 H (1.4-5.7) K/uL Lymph # (Auto) 0.4 L (0.6-2.4) K/uL [place] # (Auto) 1.6 H (0.0-0.8) K/uL Eos # (Auto) 0.0 (0.0-0.7) K/uL Baso # (Auto) 0.0 (0.0-0.1) K/uL Nucleated RBC % 0.0 /100WBC Nucleated RBCs # 0 K/uL Sodium 134 L (136-148) mmol/L Potassium 3.5 (3.5-5.1) mmol/L Chloride 97 L (98-107) mmol/L Carbon Dioxide 28.5 (21.0-32.0) mmol/L BUN 13 (7.0-18.0) mg/dL Creatinine 0.9 (0.8-1.3) mg/dL Est Cr Clr Drug Dosing 80.21 mL/min Estimated GFR (MDRD) > 60.0 ml/min Glucose 155 H (74-106) mg/dL Calcium 8.1 L (8.5-10.1) mg/dL Total Bilirubin 0.7 (0.2-1.0) mg/dL AST 24 (15-37) IU/L ALT 31 (14-63) IU/L Alkaline Phosphatase 144 H (46-116) U/L Total Protein 5.3 L (6.4-8.2) g/dL Albumin 2.1 L (3.4-5.0) g/dL Globulin 3.2 (2.0-3.5) g/dL Albumin/Globulin Ratio 0.7 L (1.3-2.8) Med Orders - Current: Current Medications Discontinued Medications Acetaminophen (Tylenol) 650 mg PO Q4H PRN PRN Reason: Pain (Mild 1-3)/fever Last Admin: 10/13/17 12:28 Dose: 650 mg Albuterol/Ipratropium (Duoneb 3.0-0.5 Mg/3 Ml) 3 ml NEB Q4HRRT PRN PRN Reason: Shortness Of Breath/wheezing Enoxaparin Sodium (Lovenox) 40 mg SUBCUT Q24H [facility] Last Admin: 10/12/17 17:22 Dose: 40 mg Levofloxacin/Dextrose 500 mg/ (Premix) 100 mls @ 100 mls/hr IV ONETIME ONE Stop: 10/10/17 13:27 Last Admin: 10/10/17 12:59 Dose: 100 mls/hr Sodium Chloride (Normal Saline) 1,000 mls @ 500 mls/hr IV STAT ONE Stop: 10/10/17 14:27 Last Admin: 10/10/17 13:00 Dose: 500 mls/hr Levofloxacin/Dextrose 250 mg/ (Premix) 50 mls @ 50 mls/hr IV ONETIME ONE Stop: 10/10/17 14:45 Last Admin: 10/10/17 14:20 Dose: 50 mls/hr Sodium Chloride (Normal Saline) 1,000 mls @ 125 mls/hr IV ASDIRECTED [facility] Last Admin: 10/11/17 10:17 Dose: 125 mls/hr Levofloxacin/Dextrose 750 mg/ (Premix) 150 mls @ 100 mls/hr IV Q24H [facility] Last Admin: 10/13/17 09:28 Dose: 100 mls/hr Magnesium Sulfate 4 gm/ Premix 100 mls @ 50 mls/hr IV ONETIME ONE Stop: 10/11/17 12:43 Last Admin: 10/11/17 13:10 Dose: 50 mls/hr Morphine Sulfate (Morphine) 2 mg IVPUSH Q2H PRN PRN Reason: Pain (severe 7-10) Last Admin: 10/11/17 08:28 Dose: 2 mg Ondansetron HCl (Zofran) 4 mg IVPUSH Q4H PRN PRN Reason: Nausea/Vomiting Potassium Chloride (Klor-Con M20) 40 meq PO ONETIME ONE Stop: 10/11/17 13:16 Last Admin: 10/11/17 13:10 Dose: 40 meq Sodium Chloride (Saline Flush) 10 ml FLUSH ASDIRECTED PRN PRN Reason: Keep Vein Open Sodium Chloride (Saline Flush) 2.5 ml FLUSH ASDIRECTED PRN PRN Reason: Keep Vein Open *Q Meaningful Use (DIS) - VTE *Q VTE Criteria *Q: - Stroke *Q Stroke Criteria *Q: - AMI *Q AMI Criteria *Q: - Free Text/Narrative Note: I have examined the patient. I have discussed findings and treatment plan with the resident. I agree with the assessment and plan outlined in the following resident's note.
== END 2017-10-13 14:00 | disposition home or self-care (01) | DRG 139 ==
LOC: MW.ED 11:04 → MW.MS 13:46
PROVIDERS: ADMIT Internal Medicine; ATTEND Internal Medicine
DX: J18.9 Pneumonia, unspecified organism (principal); J44.9 Chronic obstructive pulmonary disease, unspecified; E87.6 Hypokalemia; E83.42 Hypomagnesemia; W01.198A Fall on same level from slipping, tripping and stumbling with subsequent striking against other object, initial encounter; Y93.89 Activity, other specified; Y92.019 Unspecified place in single-family (private) house as the place of occurrence of the external cause; Z87.891 Personal history of nicotine dependence; Z79.899 Other long term (current) drug therapy
CPT/HCPCS: 36415; 71046; 71046-26; 80053; 83605; 83735; 85025; 87040; 87070; 87205; 93005; 96365; 99283; 99285-25; A9270-GY; J1650; J1956; J2270; J3475; J7040

== ENCOUNTER 2017-12-09 08:19 | Day surgery (SDC) | payer BC ==
[~2017-12-09 08:19] MED LIST: Bupivacaine 25%/EPINEPHrine/PF 30 ML ONE; Lactated Ringers 1,000 ML IV SCH; ceFAZolin 2 GM in Premix Bag 1 BAG IV ONE
--- NOTE | 2017-12-09 08:49 | PCM.PREANE ---
Preanesthetic Assessment - Anesthesia/Transfusion/Family Hx Anesthesia History: Prior Anesthesia Without Reaction Family History of Anesthesia Reaction: No Transfusion History: No Prior Transfusion(s) Intubation History: Unknown - Review of Systems General: No Symptoms Pulmonary: No Symptoms Cardiovascular: No Symptoms Gastrointestinal: No Symptoms Neurological: No Symptoms Other: Reports: None - Physical Assessment O2 Sat by Pulse Oximetry: 92 Respiratory Rate: 16 Vital Signs: Last Vital Signs Temp 36.5 C 12/09/17 08:40 Pulse 79 12/09/17 08:40 Resp 16 12/09/17 08:40 BP 132/94 H 12/09/17 08:40 Pulse Ox 92 L 12/09/17 08:40 Height: 1.78 m Weight: 66.678 kg ASA Class: 3 Mental Status: Alert & Oriented x3 Airway Class: Mallampati = 2 Dentition: Reports: Normal Dentition Thyro-Mental Finger Breadths: 2 Mouth Opening Finger Breadths: 2 ROM/Head Extension: Limited/Partial Lungs: Clear to Auscultation, Normal Respiratory Effort, Decreased Breath Sounds Cardiovascular: Regular Rate, Regular Rhythm - Allergies Allergies/Adverse Reactions: Allergies Allergy/AdvReac Type Severity Reaction Status Date / Time No Known Allergies Allergy Verified 12/05/17 12:12 - Blood Blood Available: No - Anesthesia Plan Pre-Op Medication Ordered: None - Acknowledgements Anesthesia Type Planned: General Anesthesia Pt an Appropriate Candidate for the Planned Anesthesia: Yes Alternatives and Risks of Anesthesia Discussed w Pt/Guardian: Yes Pt/Guardian Understands and Agrees with Anesthesia Plan: Yes PreAnesthesia Questionnaire HEENT History: Cardiovascular History: Reports: High Cholesterol Respiratory History: Reports: COPD, Other (See Below) (needs couple of pillows to sleep to avoid SOB) Genitourinary History: Reports: Other (See Below) 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 Musculoskeletal History: Reports: Fracture - Past Surgical History Head Surgeries/Procedures: Reports: None Respiratory Surgical History: Reports: None Musculoskeletal Surgical History: Reports: Other (See Below) Other Musculoskeletal Surgeries/Procedures:: Rt, index finger knuckle replaced R [id number], surgery for fx rt ankle with plate - SUBSTANCE USE Smoking Status *Q: Former Smoker (quit 7=8 years ago) Tobacco Use Within Last Twelve Months: Cigarettes Second Hand Smoke Exposure: No Recreational Drug Use History: No - HOME MEDS Home Medications: Home Meds Albuterol Sulfate 1 dose NEB ASDIRECTED PRN 10/10/17 [History] Fluticasone/Salmeterol [Advair Hfa 230-21 Mcg Inhaler] 1 puff IH BID 30 Days #1 aer.w.adap 10/13/17 [Rx] Albuterol [Ventolin HFA] 1 - 2 puff INH ASDIRECTED PRN 12/05/17 [History] atorvaSTATin Calcium [Atorvastatin Calcium] 40 mg PO BEDTIME 12/05/17 [History] - CURRENT (IN HOUSE) MEDS Current Meds: Current Medications Lactated Ringer's (Ringers, Lactated) 1,000 mls @ 125 mls/hr IV ASDIRECTED [facility] Last Admin: 12/09/17 08:41 Dose: 125 mls/hr Discontinued Medications Cefazolin Sodium/Dextrose 2 gm (/ Premix) 50 mls @ 100 mls/hr IV ONETIME ONE Stop: 12/09/17 05:29 Bupivacaine HCl/Epinephrine Bitart (Sensorc Mpf 0.25%-Epi [id number]) Confirm Administered Dose 30 mls @ as directed .ROUTE .STK-MED ONE Stop: 12/09/17 07:12
[2017-12-09] MEDS ORDERED: fentaNYL 100 MCG/2 ML SDV ONE (09:09)
[2017-12-09] MEDS ORDERED: Midazolam 1 MG/ML 2 ML SDV ONE (09:09)
[2017-12-09] MEDS ORDERED: Lidocaine 2% 5 ML SDV ONE (09:09)
[2017-12-09] MEDS ORDERED: Rocuronium 10 MG/ML 10 ML Syringe ONE (09:09)
[2017-12-09] MEDS ORDERED: Propofol 200 MG/20 ML SDV ONE (09:09)
[2017-12-09] MEDS ORDERED: Ondansetron 4 MG/2 ML SDV ONE (09:09)
[2017-12-09] MEDS ORDERED: Succinylcholine 200 MG/10 ML MDV ONE (10:14)
[2017-12-09] MEDS ORDERED: ePHEDrine 50 MG/ML SDV ONE (10:27)
[2017-12-09] MEDS ORDERED: fentaNYL 100 MCG/2 ML SDV IVPUSH PRN (11:01)
[2017-12-09] MEDS ORDERED: Albuterol 6.7 GM Inhaler INH ONE (11:02)
--- NOTE | 2017-12-09 11:27 | PCM.OPNOTE ---
- General Post-Op/Procedure Note Date of Surgery/Procedure: 12/09/17 Operative Procedure(s): R ing hernia rep w mesh Findings: large direct R ing hernia, no indirect; large size plug used; [id number] Pre Op Diagnosis: r ing hernia Post-Op Diagnosis: Same Anesthesia Technique: General ET Tube Primary Surgeon: Anton Madrigal Complications: None Condition: Good Free Text/Narrative:: Intake & Output 12/08/17 12/09/17 12/09/17 22:59 06:59 14:59 Output Total 125 Balance -125
[2017-12-09] MEDS ORDERED: Acetaminophen/oxyCODONE 325-5 MG Tab PO ONE (11:28)
--- NOTE | 2017-12-09 13:10 | OR ---
SURGEON: Anton Madrigal MD DATE OF PROCEDURE: 12/09/2017 PREOPERATIVE DIAGNOSIS: Right inguinal hernia. POSTOPERATIVE DIAGNOSIS: Right inguinal hernia. PROCEDURE PERFORMED: Repair with mesh. COMPLICATIONS: None. FINDINGS: Very large direct inguinal hernia and no indirect hernia. Large-sized plug was used. PROCEDURE IN DETAIL: The patient was taken to the operating room and placed in the supine position. Upon induction of general endotracheal anesthesia, the patient's groin and inguinal area were prepped and draped in a sterile fashion. The scrotum was placed on top of the drape in case it needed to be maneuvered. An IV antibiotic was given prophylactically and after assessment of appropriate landmark, a transverse incision was made above inguinal ligament, and was taken down past the Timothy fascia and exposed the external oblique where the cord is. The external ring was also identified and using a 15 blade, a small donato was made right on top of the cord and then using a Metzenbaum scissors, carefully opened up the fiber along its direction all the way to the external ring. The spermatic cord was then carefully lifted up from the inguinal canal. A [place] drain was then used to hold on to manipulate the cord and carefully dissect out from the inguinal floor. The cremasteric muscle was then opened up. Careful examined of the cord, dissected down the cremasteric muscle, failed to delineate any indirect hernia sac. A large direct hernia was noted, A large plug was inserted into the direct hernia and followed with a mesh to reinforce the ing floor. The mesh was then anchored down by using 2-0 Prolene stitches to the periosteum of the pubic symphysis, then running down to the lateral aspect of the rectus muscle. The lateral part of the mesh was then anchored to the Shankar ligament, again using 2-0 Prolene. The last few stitches also anchored the plug to make sure the plug is not migrating. Where the cord exits out, a stitch was placed in the two tails to repair the internal ring. Upon conclusion of surgery, I used a finger to make sure the ring is not too tight and not too loose, followed with some irrigation. The external oblique was then repaired by use of 2-0 Vicryl and the recreation external ring was also tested, not too tight, not too loose, followed with 2-0 Vicryl and closed the Timothy fascia and the skin stapled to approximate the skin, followed by appropriate dressing. The patient was then awakened, extubated and transferred to recovery room in a hemodynamically stable condition. The patient tolerated the procedure well. There were no intraoperative complications. Dr. Madrigal was present through the whole procedure. Just before surgery, a timeout was called. The patient was identified and procedure identified and procedure started. As always, thank you for the kind referral. ELEONORA / DARRELL /[id number] MTDYarelis
--- NOTE | 2017-12-09 13:21 | PCM48HPAN ---
Post Anesthesia Note - EVALUATION WITHIN 48HRS OF ANESTHETIC Vital Signs in Normal Range: Yes Patient Participated in Evaluation: Yes Respiratory Function Stable: Yes Airway Patent: Yes Cardiovascular Function Stable: Yes Hydration Status Stable: Yes Pain Control Satisfactory: Yes Nausea and Vomiting Control Satisfactory: Yes Mental Status Recovered: Yes Resp Rate: 21 - COMMENTS/OBSERVATIONS Free Text/Narrative:: no anesthesia problems
== END 2017-12-09 13:30 | disposition home or self-care (01) ==
LOC: MW.SDS 08:19
PROVIDERS: ATTEND Surgery
DX: K40.90 Unilateral inguinal hernia, without obstruction or gangrene, not specified as recurrent (principal); J44.9 Chronic obstructive pulmonary disease, unspecified; E78.00 Pure hypercholesterolemia, unspecified; Z87.891 Personal history of nicotine dependence; Z79.899 Other long term (current) drug therapy; Z79.51 Long term (current) use of inhaled steroids
CPT/HCPCS: 49505; A9270; J0330; J0690; J2250; J2405; J3010; J7120; 00830; C1781; J2704

== ENCOUNTER 2018-02-02 14:45 | Inpatient (IN) | payer BC ==
[2018-02-02] MEDS ORDERED: Albuterol/Ipratropium 3.0-0.5 MG/3 ML Neb Soln NEB PRN (14:50)
--- NOTE | 2018-02-02 15:12 | PCM.HP ---
H&P History of Present Illness - General Date of Service: 02/02/18 Admit Problem/Dx: Admission Diagnosis/Problem Admission Diagnosis/Problem Pneumonia Source of Information: Patient History Limitations: Reports: No Limitations - History of Present Illness Initial Comments - Free Text/Narative: 62M with a hx of COPD, HLD being directly admitted by myself from clinic. The patient states that for the past week, now he has been getting progressively more short of breath and a worsening cough. He has also been experiencing subjective fever/chills. Cough is productive for a whitish phlegm. He has an pulse ox at home which has been reading in the low 80s to him. He denies any chest pain, palpitations, nausea or vomiting. He was last hospitalized on 2017 for pneumonia. He has since been on scheduled Advair and PRN Albuterol which he thinks isn't effective. Clinic course: CXR - LLB consolidation with concerns of a possible neoplasm as per radiologist + small pleural effusion CBC - leukocytosis 13k CMP - Na 131, Glucose 191, Alk phos 120, AST 39 DuoNeb x1 Vitals in clinic: BP 102/60, T 99.4, P 104, O2 sat 89%, 91% after neb - Related Data Allergies/Adverse Reactions: Allergies Allergy/AdvReac Type Severity Reaction Status Date / Time No Known Allergies Allergy Verified 12/05/17 12:12 Home Medications: Home Meds Albuterol Sulfate 1 dose NEB ASDIRECTED PRN 10/10/17 [History] Fluticasone/Salmeterol [Advair Hfa 230-21 Mcg Inhaler] 1 puff IH BID 30 Days #1 aer.w.adap 10/13/17 [Rx] Albuterol [Ventolin HFA] 1 - 2 puff INH ASDIRECTED PRN 12/05/17 [History] atorvaSTATin Calcium [Atorvastatin Calcium] 40 mg PO BEDTIME 12/05/17 [History] Past Medical History HEENT History: Cardiovascular History: Reports: High Cholesterol Respiratory History: Reports: COPD, Other (See Below) (needs couple of pillows to sleep to avoid SOB) Genitourinary History: Reports: Other (See Below) 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 Musculoskeletal History: Reports: Fracture - Past Surgical History Head Surgeries/Procedures: Reports: None Respiratory Surgical History: Reports: None Musculoskeletal Surgical History: Reports: Other (See Below) Other Musculoskeletal Surgeries/Procedures:: Rt, index finger knuckle replaced R [id number], surgery for fx rt ankle with plate Social & Family History - Family History Family Medical History: Noncontributory - Caffeine Use Caffeine Use: Reports: Coffee H&P Review of Systems - Review of Systems: Review Of Systems: See Below General: Reports: Fever, Chills Pulmonary: Reports: Shortness of Breath, Cough, Sputum. Denies: Pleuritic Chest Pain Cardiovascular: Reports: No Symptoms Gastrointestinal: Reports: No Symptoms Genitourinary: Reports: No Symptoms Musculoskeletal: Reports: No Symptoms Skin: Reports: No Symptoms Psychiatric: Reports: No Symptoms Neurological: Reports: No Symptoms Hematologic/Lymphatic: Reports: No Symptoms Immunologic: Reports: No Symptoms Exam - Exam Exam: See Below - Exam General: Alert, Oriented HEENT: Conjunctiva Clear, EOMI, Mucosa Moist & [place], TMs Clear Neck: Supple, Trachea Midline Lungs: Other (Increased work of breathing with bilateral wheezing throughout) Cardiovascular: Regular Rate, Regular Rhythm GI/Abdominal Exam: Normal Bowel Sounds, Soft, Non-Tender, No Organomegaly, No Distention, No Abnormal Bruit, No Mass, Pelvis Stable Back Exam: Normal Inspection, Full Range of Motion, NT Extremities: Normal Inspection, Normal Range of Motion, Non-Tender, No Pedal Edema, Normal Capillary Refill Peripheral Pulses: 2+: Posterior Tibial (L), Posterior Tibial (R) Skin: Warm Neurological: Cranial Nerves Intact Neuro Extensive - Mental Status: Alert, Oriented x3 Neuro Extensive - Motor, Sensory, Reflexes: CN II-XII Intact Psychiatric: Alert, Normal Affect, Normal Mood Problem List Initiated/Reviewed/Updated: Yes Orders Last 24hrs: Active Orders 24 hr Category Date Time Status Patient Status [ADT] Routine ADT 02/02/18 14:50 Ordered EKG Documentation Completion [RC] STAT Care 02/02/18 14:56 Ordered Oxygen Therapy [RC] PRN Care 02/02/18 14:50 Ordered RT Aerosol Therapy [RC] ASDIRECTED Care 02/02/18 14:54 Ordered Up ad Kymberly [RC] ASDIRECTED Care 02/02/18 14:50 Ordered VTE/DVT Education [RC] PER UNIT ROUTINE Care 02/02/18 14:50 Ordered Vital Signs [RC] Q4H Care 02/02/18 14:50 Ordered Regular Diet [DIET] Diet 02/02/18 Dinner Ordered BASIC METABOLIC PANEL,BMP [CHEM] AM Lab 02/03/18 05:11 Ordered CBC W/O DIFF,HEMOGRAM [HEME] AM Lab 02/03/18 05:11 Ordered CULTURE BLOOD [BC] Stat Lab 02/02/18 14:59 Ordered CULTURE BLOOD [BC] Stat Lab 02/02/18 14:59 Ordered CULTURE SPUTUM + SMEAR [RM] Stat Lab 02/02/18 15:00 Ordered GLYCOSYLATED HEMOGLOBIN,HGBA1C [CHEM] Routine Lab 02/02/18 14:56 Ordered LACTIC ACID,WHOLE BLOOD [BG] Stat Lab 02/02/18 14:55 Ordered Albuterol/Ipratropium [DuoNeb 3.0-0.5 MG/3 ML] Med 02/02/18 14:50 Ordered 3 ml NEB Q4HRRT PRN Heparin Sodium Med 02/02/18 15:00 Ordered 5,000 units SUBCUT Q8H Levofloxacin/Dextrose 5%-Water [Levaquin in D5W 750 MG/ Med 02/02/18 15:15 Ordered 150 ML] 750 mg Premix Bag 1 bag IV Q24H Piperacillin/Tazobactam [Piperacil-Tazobact] 4.5 gm Med 02/02/18 15:15 Ordered Sodium Chloride 0.9% [Normal Saline] 100 ml IV Q6H Sodium Chloride 0.9% [Normal Saline] 1,000 ml Med 02/02/18 15:00 Ordered IV ASDIRECTED atorvaSTATin [Lipitor] Med 02/02/18 21:00 Ordered 40 mg PO BEDTIME methylPREDNISolone Sod Succ [Solu-MEDROL] Med 02/02/18 15:00 Ordered 60 mg IV Q6H Blood Culture x2 Reflex Set [OM.PC] Stat Oth 02/02/18 14:56 Ordered Sequential Compression Device [OM.PC] Per Unit Routine Oth 02/02/18 14:52 Ordered Resuscitation Status Routine Resus Stat 02/02/18 14:50 Ordered Medication Orders Albuterol/Ipratropium (Duoneb 3.0-0.5 Mg/3 Ml) 3 ml NEB Q4HRRT PRN PRN Reason: Shortness Of Breath/wheezing Atorvastatin Calcium (Lipitor) 40 mg PO BEDTIME ASHVIN Heparin Sodium (Porcine) (Heparin Sodium) 5,000 units SUBCUT Q8H [facility] Sodium Chloride (Normal Saline) 1,000 mls @ 100 mls/hr IV ASDIRECTED [facility] Levofloxacin/Dextrose 750 mg/ (Premix) 150 mls @ 100 mls/hr IV Q24H [facility] Piperacillin Sod/Tazobactam (Sod 4.5 gm/ Sodium Chloride) 100 mls @ 100 mls/hr IV Q6H [facility] Methylprednisolone Sodium Succinate (Solu-Medrol) 60 mg IV Q6H [facility] Assessment/Plan Comment:: Assessment: #1. Acute hypoxic respiratory failure #2. Community Acquired pneumonia #3. COPD Exacerbation secondary to #2 #4. Leukocytosis #5. Mild hyponatremia #6. Mild hyperglycemia #7. Transaminitis #8. Elevated alk phos #9. History of COPD, HLD Plan: #1. Admit to the floor for observation #2. Full code. Vital signs per floor routine. Regular diet #3. Heparin + SCD for DVT prophylaxis #4. IV levaquin + zosyn #5. IV solumedrol 60mg q6h #6. DuoNeb q4h PRN SOB/wheezing #7. Titrate o2 as needed #8. Blood cultures, sputum culture, lactate #9. IVNS 100ml/h. #10. CT Chest w/ contrast given questionable CXR #11. CBC, CMP tomorrow AM #12. Anticipate dispo 1-2 days
[2018-02-02] MEDS: methylPREDNISolone Sodium Succinate 125 MG/2 ML SDV IV SCH ×2 (15:40→22:08)
[2018-02-02] MEDS: Levofloxacin/Dextrose 5%-Water 750 MG in Premix Bag 1 BAG IV SCH (15:40)
[2018-02-02] MEDS: Heparin Sodium 5,000 Units/ML Vial SUBCUT SCH ×2 (15:40→22:17)
[2018-02-02] MEDS: Sodium Chloride 0.9% 1,000 ML IV SCH (16:49)
[2018-02-02] MEDS ORDERED: Iopamidol 755 MG/ML 200 ML Multipack Bottle IVPUSH ONE (16:53)
[2018-02-02] MEDS ORDERED: Acetaminophen 325 MG Tab PO PRN (17:44)
[2018-02-02] MEDS: Piperacillin/Tazobactam 4.5 GM in Sodium Chloride 0.9% 100 ML IV SCH ×2 (17:48→22:16)
[2018-02-02 18:42] LABS: CHLORIDE,CL 96 mmol/L (98-107); SODIUM,NA 129 mmol/L (136-148)
[2018-02-02] MEDS ORDERED: atorvaSTATin 40 MG Tab PO SCH (21:00)
[2018-02-02] MEDS: atorvaSTATin 40 MG Tab PO SCH (22:00)
[2018-02-02] MEDS: Advair Hfa 230-21 Mcg Inhaler INH SCH (22:07)
--- NOTE | 2018-02-02 22:54 | PCM.SN ---
- Free Text/Narrative Note: Ct chest shows multiple aria of consolidation and cavitation,sugestive of abcess , will start patient on Vancomycin iv.
[2018-02-03] MEDS: methylPREDNISolone Sodium Succinate 125 MG/2 ML SDV IV SCH ×3 (02:12→20:10)
[2018-02-03 05:40] LABS: CHLORIDE,CL 100 mmol/L (98-107); SODIUM,NA 136 mmol/L (136-148)
[2018-02-03] MEDS: Piperacillin/Tazobactam 4.5 GM in Sodium Chloride 0.9% 100 ML IV SCH ×4 (05:48→23:42)
[2018-02-03] MEDS: Sodium Chloride 0.9% 1,000 ML IV SCH (05:50)
[2018-02-03] MEDS: Heparin Sodium 5,000 Units/ML Vial SUBCUT SCH ×3 (06:32→23:45)
[2018-02-03] MEDS: Advair Hfa 230-21 Mcg Inhaler INH SCH ×2 (09:29→20:10)
[2018-02-03] MEDS ORDERED: Tuberculin, PPD 5 Units/0.1 ML 1 ML MDV IDERM ONE (10:01)
--- NOTE | 2018-02-03 10:16 | PCM.PN ---
- General Info Date of Service: 02/03/18 Admission Dx/Problem (Free Text): Admission Diagnosis/Problem Admission Diagnosis/Problem Pneumonia Subjective Update: Feeling better this morning, shortness of breath and cough slightly improved. Still having productive cough, which is brown in color. No chest pain. No abdominal pain. Functional Status: Reports: Pain Controlled, Tolerating Diet, Ambulating, Urinating - Review of Systems General: Reports: Fever, Fatigue, Malaise HEENT: Reports: No Symptoms. Denies: Headaches, Sore Throat, Visual Changes Pulmonary: Reports: Shortness of Breath (improving), Cough, Sputum. Denies: Hemoptysis, Wheezing Cardiovascular: Reports: No Symptoms. Denies: Chest Pain, Palpitations, Edema, Lightheadedness Gastrointestinal: Reports: No Symptoms. Denies: Abdominal Pain, Nausea, Vomiting Genitourinary: Reports: No Symptoms. Denies: Dysuria, Frequency, Burning Musculoskeletal: Reports: No Symptoms Skin: Reports: No Symptoms Neurological: Reports: No Symptoms Psychiatric: Reports: No Symptoms - Patient Data Vitals - Most Recent: Last Vital Signs Temp 97.7 F 02/03/18 08:00 Pulse 95 02/03/18 08:00 Resp 19 02/03/18 08:00 BP 116/78 02/03/18 08:00 Pulse Ox 90 L 02/03/18 08:00 Weight - Most Recent: 64.773 kg I&O - Last 24 Hours: Intake & Output 02/02/18 02/03/18 02/03/18 22:59 06:59 14:59 Intake Total 2050 Output Total 1650 Balance 400 Lab Results Last 24 Hours: Laboratory Results - last 24 hr 02/02/18 02/02/18 02/02/18 Range/Units 15:15 15:17 18:10 WBC 14.16 H (4.0-11.0) K/uL RBC 4.65 (4.50-5.90) M/uL Hgb 15.3 (13.0-17.0) g/dL Hct 42.5 (38.0-50.0) % MCV 91.4 (80.0-98.0) fL MCH 32.9 H (27.0-32.0) pg MCHC 36.0 (31.0-37.0) g/dL RDW Std Deviation 44.2 (28.0-62.0) fl RDW Coeff of Monica 13 (11.0-15.0) % Plt Count 199 (150-400) K/uL MPV 8.80 (7.40-12.00) fL Nucleated RBC % 0.0 /100WBC Nucleated RBCs # 0 K/uL ESR (0-19) mm/hr Lactate 1.5 (0.20-2.00) mmol/L Sodium (136-148) mmol/L Potassium (3.5-5.1) mmol/L Chloride (98-107) mmol/L Carbon Dioxide (21.0-32.0) mmol/L BUN (7.0-18.0) mg/dL Creatinine (0.8-1.3) mg/dL Est Cr Clr Drug Dosing mL/min Estimated GFR (MDRD) ml/min Glucose (74-106) mg/dL Hemoglobin A1c 5.2 (4.5-6.2) % Calcium (8.5-10.1) mg/dL Total Bilirubin (0.2-1.0) mg/dL AST (15-37) IU/L ALT (14-63) IU/L Alkaline Phosphatase (46-116) U/L Troponin I (0.000-0.056) ng/mL Total Protein (6.4-8.2) g/dL Albumin (3.4-5.0) g/dL Globulin (2.0-3.5) g/dL Albumin/Globulin Ratio (1.3-2.8) 02/02/18 02/02/18 02/03/18 Range/Units 18:10 23:00 04:55 WBC 7.60 (4.0-11.0) K/uL RBC 4.53 (4.50-5.90) M/uL Hgb 14.7 (13.0-17.0) g/dL Hct 41.6 (38.0-50.0) % MCV 91.8 (80.0-98.0) fL MCH 32.5 H (27.0-32.0) pg MCHC 35.3 (31.0-37.0) g/dL RDW Std Deviation 43.6 (28.0-62.0) fl RDW Coeff of Monica 13 (11.0-15.0) % Plt Count 206 (150-400) K/uL MPV 9.20 (7.40-12.00) fL Nucleated RBC % 0.0 /100WBC Nucleated RBCs # 0 K/uL ESR 69 H (0-19) mm/hr Lactate (0.20-2.00) mmol/L Sodium 129 L (136-148) mmol/L Potassium 4.1 (3.5-5.1) mmol/L Chloride 96 L (98-107) mmol/L Carbon Dioxide 23.9 (21.0-32.0) mmol/L BUN 14 (7.0-18.0) mg/dL Creatinine 1.0 (0.8-1.3) mg/dL Est Cr Clr Drug Dosing 70.17 mL/min Estimated GFR (MDRD) > 60.0 ml/min Glucose 119 H (74-106) mg/dL Hemoglobin A1c (4.5-6.2) % Calcium 8.5 (8.5-10.1) mg/dL Total Bilirubin 0.7 (0.2-1.0) mg/dL AST 43 H (15-37) IU/L ALT 53 (14-63) IU/L Alkaline Phosphatase 129 H (46-116) U/L Troponin I < 0.050 (0.000-0.056) ng/mL Total Protein 6.9 (6.4-8.2) g/dL Albumin 2.4 L (3.4-5.0) g/dL Globulin 4.5 H (2.0-3.5) g/dL Albumin/Globulin Ratio 0.5 L (1.3-2.8) 02/03/18 Range/Units 04:55 WBC (4.0-11.0) K/uL RBC (4.50-5.90) M/uL Hgb (13.0-17.0) g/dL Hct (38.0-50.0) % MCV (80.0-98.0) fL MCH (27.0-32.0) pg MCHC (31.0-37.0) g/dL RDW Std Deviation (28.0-62.0) fl RDW Coeff of Monica (11.0-15.0) % Plt Count (150-400) K/uL MPV (7.40-12.00) fL Nucleated RBC % /100WBC Nucleated RBCs # K/uL ESR (0-19) mm/hr Lactate (0.20-2.00) mmol/L Sodium 136 (136-148) mmol/L Potassium 3.5 (3.5-5.1) mmol/L Chloride 100 (98-107) mmol/L Carbon Dioxide 25.8 (21.0-32.0) mmol/L BUN 16 (7.0-18.0) mg/dL Creatinine 0.9 (0.8-1.3) mg/dL Est Cr Clr Drug Dosing 77.97 mL/min Estimated GFR (MDRD) > 60.0 ml/min Glucose 171 H (74-106) mg/dL Hemoglobin A1c (4.5-6.2) % Calcium 8.5 (8.5-10.1) mg/dL Total Bilirubin 0.5 (0.2-1.0) mg/dL AST 31 (15-37) IU/L ALT 51 (14-63) IU/L Alkaline Phosphatase 113 (46-116) U/L Troponin I (0.000-0.056) ng/mL Total Protein 6.3 L (6.4-8.2) g/dL Albumin 2.2 L (3.4-5.0) g/dL Globulin 4.1 H (2.0-3.5) g/dL Albumin/Globulin Ratio 0.5 L (1.3-2.8) Phu Results Last 24 Hours: Microbiology 02/02/18 16:51 Gram Stain - Preliminary Sputum - Expectorated Med Orders - Current: Current Medications Acetaminophen (Tylenol) 650 mg PO Q6H PRN PRN Reason: Fever Albuterol/Ipratropium (Duoneb 3.0-0.5 Mg/3 Ml) 3 ml NEB Q4HRRT PRN PRN Reason: Shortness Of Breath/wheezing Atorvastatin Calcium (Lipitor) 40 mg PO BEDTIME [facility]VIN Last Admin: 02/02/18 22:00 Dose: 40 mg Heparin Sodium (Porcine) (Heparin Sodium) 5,000 units SUBCUT Q8H [facility] Last Admin: 02/03/18 06:32 Dose: 5,000 units Levofloxacin/Dextrose 750 mg/ (Premix) 150 mls @ 100 mls/hr IV Q24H [facility] Last Admin: 02/02/18 15:40 Dose: 100 mls/hr Piperacillin Sod/Tazobactam (Sod 4.5 gm/ Sodium Chloride) 100 mls @ 100 mls/hr IV Q6H [facility] Last Admin: 02/03/18 05:48 Dose: 100 mls/hr Vancomycin HCl 1 gm/ Sodium (Chloride) 250 mls @ 166 mls/hr IV Q12H [facility] Last Admin: 02/03/18 00:38 Dose: 166 mls/hr Methylprednisolone Sodium Succinate (Solu-Medrol) 60 mg IV Q6H [facility] Last Admin: 02/03/18 09:27 Dose: 60 mg Advair Hfa 230-21 (Mcg Inhaler) 1 each INH BID [facility] Last Admin: 02/03/18 09:29 Dose: Not Given Tuberculin PPD (Aplisol) 5 unit IDERM ONETIME ONE Stop: 02/03/18 10:02 Vancomycin HCl (Pharmacy To Dose - Vancomycin) 0 dose .XX ASDIRECTED [facility] Discontinued Medications Atorvastatin Calcium (Lipitor) 40 mg PO BEDTIME [facility] Sodium Chloride (Normal Saline) 1,000 mls @ 100 mls/hr IV ASDIRECTED [facility] Last Admin: 02/03/18 05:50 Dose: 100 mls/hr Iopamidol (Isovue Multipack-370 (76%)) 75 ml IVPUSH ONETIME ONE Stop: 02/02/18 16:54 Last Admin: 02/02/18 16:55 Dose: 75 ml - Exam Quality Assessment: DVT Prophylaxis. No: Supplemental Oxygen General: Alert, Oriented, Cooperative, No Acute Distress Neck: Supple, No Thyromegaly Lungs: Crackles (bilbasilar) Cardiovascular: Regular Rate, Regular Rhythm, No Murmurs GI/Abdominal Exam: Normal Bowel Sounds, Soft, Non-Tender, No Distention Back Exam: Normal Inspection, Full Range of Motion Extremities: Normal Inspection, Normal Range of Motion, Non-Tender Neurological: No New Focal Deficit Psy/Mental Status: Alert, Normal Affect, Normal Mood - Problem List & Annotations (1) Acute respiratory failure with hypoxia SNOMED Code(s): 90445011, 492981535 Code(s): J96.01 - ACUTE RESPIRATORY FAILURE WITH HYPOXIA Status: Acute Current Visit: Yes (2) Pulmonary cavitary lesion SNOMED Code(s): 925215521 Code(s): J98.4 - OTHER DISORDERS OF LUNG Status: Acute Current Visit: Yes (3) Gram-negative pneumonia SNOMED Code(s): 297883469 Code(s): J15.6 - PNEUMONIA DUE TO OTHER GRAM-NEGATIVE BACTERIA Status: Suspected Current Visit: Yes (4) COPD (chronic obstructive pulmonary disease) SNOMED Code(s): 26792173 Code(s): J44.9 - CHRONIC OBSTRUCTIVE PULMONARY DISEASE, UNSPECIFIED Status : Acute Current Visit: Yes (5) Hypercholesteremia SNOMED Code(s): 68679882 Code(s): E78.00 - PURE HYPERCHOLESTEROLEMIA, UNSPECIFIED Status: Acute Current Visit: Yes (6) COPD exacerbation SNOMED Code(s): 897907591 Code(s): J44.1 - CHRONIC OBSTRUCTIVE PULMONARY DISEASE W (ACUTE) EXACERBATION Status: Acute Current Visit: Yes - Problem List Review Problem List Initiated/Reviewed/Updated: Yes - My Orders Last 24 Hours: My Active Orders 02/03/18 10:00 Specimens to Lab, Nursing [RC] ASDIRECTED AFB STAIN WITH CULTURE Stat 02/03/18 10:01 Tuberculin, PPD [Aplisol] 5 unit IDERM ONETIME ONE 02/03/18 10:03 Patient Status [ADT] Routine 02/03/18 10:04 Communication Order [RC] PRN 02/04/18 06:00 AFB STAIN WITH CULTURE DAILY 02/05/18 06:00 AFB STAIN WITH CULTURE DAILY - Plan Plan:: This 62 year old male admitted with acute on chronic hypoxic respiratory failure , CAP, and COPD exacerbation 1. Acute on chronic respiratory failure: Resolved, no longer needing oxygen. dyspnea is improving. Continue to monitor 2. Cavitary lesion: Chest CT revealed, "Dense consolidation left upper lobe with cavitation; rule out lung abscess., Dense consolidation left lower lobe with air bronchograms. Extensive consolidation right upper lobe, right middle lobe and right lower lobe. The above described findings are most suggestive of infection rather than neoplasm; close followup is needed to rule out underlying malignancy. Lymphadenopathy in the mediastinum probably reactive." I called [facility] in [place] regarding transfer vs recommendations on further treatment. I spoke with Dr Sheth, pulmonology. He recommends continued treatment with current regimen of Levaquin, Vancomycin and Zosyn. He does not feel like transfer is necessary since no air fluid levels are noted so no drainage is emergent and a bronchoscopy at this point would not be necessary. He recommends treating as infectious process currently and potentially with middle or intermediate school principal IV antibiotics. Await cultures to return and speak with ID to better manage home IV therapy. He recommends repeat chest CT to monitor improvement in 2-3 weeks and to arrange appointment with his clinic for further management. He will need workup for malignancy. He recommends obtaining 2D ECHO now to help rule out endocarditis due to multiple locations of consolidation. IF he were to decompensate or worsen, such has respiratory distress or failure or become hemodynamically unstable he would recommend transfer. Will work up for TB with AFB sputum x 3, Mantoux testing and Quantiferron ( which is unable to be sent until Tuesday). Place on airborne precautions now. Leukocytosis improved to 7,000 this morning. sputum culture pending, gram stain reveals. Moderate gram positive cocci in large clusters, clusters, gram negative rods, and gram positive cocci in chains/pairs. Continue coverage with broad spectrum antibiotics. He recently, 12/13/2017, had surgery for inguinal hernia repair and was treated for PNA in October 2017. Covering for MRSA pneumonia , possible gram negative pneumonia and anaerobes with Levaquin, Vancomycin and Zosyn. 3. Hyponatremia: resolved with gentle hydration. Will stop IVFs today. Eating and drinking well. Monitor. 4. COPD exacerbation: Not wheezing any longer. Will decrease Solumedrol to every 12 hours and monitor. Continue Advair and Duonebs. No longer needing oxygen. VTE prophylaxis: Heparin Dispo: 3-5 days pending rule out of TB and improvement. Will change to inpatient status secondary to ruling out TB and continued IV antibiotics therapy for cavitary lesion.
[2018-02-03] MEDS ORDERED: Potassium Chloride 20 MEQ Tab.ER PO ONE (13:24)
[2018-02-03] MEDS: Levofloxacin/Dextrose 5%-Water 750 MG in Premix Bag 1 BAG IV SCH (15:04)
--- NOTE | 2018-02-03 15:05 | CT ---
EXAM DATE: 02/03/18 PATIENT'S AGE: 62 Patient: JOSELYN SCHUMACHER Facility: [place], [place] Site . Site : 1955 Study: CT Chest W/ and W/O Cont [id number]/28/2018 4:56:58 PM Ordering Physician: Sidney Sun Final Report: INDICATION: Dense consolidation noted on the chest x-ray; possible neoplasm. COMPARISON: None. TECHNIQUE: CT chest without intravenous contrast; CT chest with intravenous contrast; coronal and sagittal reformats. FINDINGS: No CT evidence of pulmonary thromboembolism. No evidence of aortic aneurysm or dissection. Normal size cardiac silhouette without any evidence of pericardial effusion. Azygos fissure; normal variant. Sub cm lymph nodes identified in the mediastinum; rule out reactive lymphadenopathy. Extensive consolidation involving the left upper lobe with cavitation. Extensive consolidation left lower lobe with dense air bronchograms . Areas of consolidation identified in the right upper lobe, right middle lobe and right lower lobe. Limited CT through the upper abdomen is unremarkable. Peripelvic cysts both kidneys . IMPRESSION: 1. Dense consolidation left upper lobe with cavitation; rule out lung abscess. 2. Dense consolidation left lower lobe with air bronchograms. 3. Extensive consolidation right upper lobe, right middle lobe and right lower lobe. 4. The above described findings are most suggestive of infection rather than neoplasm; close followup is needed to rule out underlying malignancy. 5. Lymphadenopathy in the mediastinum probably reactive. 6. Peripelvic cysts both kidneys. Please note that all CT scans at this facility use dose modulation, iterative reconstruction, and/or weight-based dosing when appropriate to reduce radiation dose to as low as reasonably achievable. Dictated by Teresita Romano MD @ Feb 02 2018 9:15PM (Electronic Signature) Report Signed by Proxy. [facility]
[2018-02-03] MEDS: atorvaSTATin 40 MG Tab PO SCH (20:09)
[2018-02-03] MEDS: Temazepam 15 MG Cap PO PRN (23:50)
[2018-02-04] MEDS: Piperacillin/Tazobactam 4.5 GM in Sodium Chloride 0.9% 100 ML IV SCH ×4 (04:34→22:11)
[2018-02-04] MEDS: Heparin Sodium 5,000 Units/ML Vial SUBCUT SCH ×3 (06:03→22:11)
[2018-02-04 06:37] LABS: CHLORIDE,CL 106 mmol/L (98-107); SODIUM,NA 139 mmol/L (136-148)
[2018-02-04] MEDS: methylPREDNISolone Sodium Succinate 125 MG/2 ML SDV IV SCH ×2 (09:45→20:43)
[2018-02-04] MEDS: Advair Hfa 230-21 Mcg Inhaler INH SCH ×2 (10:08→20:52)
--- NOTE | 2018-02-04 12:20 | PCM.DCSUM1 ---
Discharge Summary - Discharge Data Discharge Disposition: Home, Self-Care 01 Condition: Good - Discharge Plan Home Medications: Home Meds Albuterol Sulfate 1 dose NEB ASDIRECTED PRN 10/10/17 [History] Fluticasone/Salmeterol [Advair Hfa 230-21 Mcg Inhaler] 1 puff IH BID 30 Days #1 aer.w.adap 10/13/17 [Rx] Albuterol [Ventolin HFA] 1 - 2 puff INH ASDIRECTED PRN 12/05/17 [History] atorvaSTATin Calcium [Atorvastatin Calcium] 40 mg PO BEDTIME 12/05/17 [History] atorvaSTATin [Lipitor] 40 mg PO BEDTIME 02/02/18 [History] Referrals: Korey Sheth [Ordering Only Provider] - 03/27/18 11:00 am - Patient Data Vitals - Most Recent: Last Vital Signs Temp 97.4 F 02/04/18 08:00 Pulse 88 02/04/18 08:00 Resp 18 02/04/18 08:00 BP 118/76 02/04/18 08:00 Pulse Ox 92 L 02/04/18 08:00 Weight - Most Recent: 142 lb 12.8 oz I&O - Last 24 hours: Intake & Output 02/03/18 02/04/18 02/04/18 22:59 06:59 14:59 Intake Total 2090 1220 Output Total 1500 1240 Balance 590 -20 Lab Results - Last 24 hrs: Laboratory Results - last 24 hr 02/04/18 02/04/18 02/04/18 Range/Units 06:06 06:06 10:03 WBC 12.22 H (4.0-11.0) K/uL RBC 4.53 (4.50-5.90) M/uL Hgb 14.6 (13.0-17.0) g/dL Hct 42.0 (38.0-50.0) % MCV 92.7 (80.0-98.0) fL MCH 32.2 H (27.0-32.0) pg MCHC 34.8 (31.0-37.0) g/dL RDW Std Deviation 44.1 (28.0-62.0) fl RDW Coeff of Monica 13 (11.0-15.0) % Plt Count 252 (150-400) K/uL MPV 9.30 (7.40-12.00) fL Neut % (Auto) 85.4 H (48.0-80.0) % Lymph % (Auto) 4.2 L (16.0-40.0) % Ward % (Auto) 10.2 (0.0-15.0) % Eos % (Auto) 0.0 (0.0-7.0) % Baso % (Auto) 0.2 (0.0-1.5) % Neut # (Auto) 10.4 H (1.4-5.7) K/uL Lymph # (Auto) 0.5 L (0.6-2.4) K/uL Ward # (Auto) 1.3 H (0.0-0.8) K/uL Eos # (Auto) 0.0 (0.0-0.7) K/uL Baso # (Auto) 0.0 (0.0-0.1) K/uL Nucleated RBC % 0.0 /100WBC Nucleated RBCs # 0 K/uL Sodium 139 (136-148) mmol/L Potassium 4.5 (3.5-5.1) mmol/L Chloride 106 (98-107) mmol/L Carbon Dioxide 25.2 (21.0-32.0) mmol/L BUN 18 (7.0-18.0) mg/dL Creatinine 1.0 (0.8-1.3) mg/dL Est Cr Clr Drug Dosing 70.17 mL/min Estimated GFR (MDRD) > 60.0 ml/min Glucose 142 H (74-106) mg/dL Calcium 8.9 (8.5-10.1) mg/dL Vancomycin Trough 10.7 H (5.0-10.0) ug/mL OTONIEL Results - Last 24 hrs: Microbiology 02/02/18 16:51 Gram Stain - Final Sputum - Expectorated Sputum Culture - Final Normal Respiratory Ciera 02/02/18 15:17 Aerobic Blood Culture - Preliminary Blood - Venous - Lab Draw NO GROWTH AFTER 1 DAY Anaerobic Blood Culture - Preliminary NO GROWTH AFTER 1 DAY 02/02/18 15:15 Aerobic Blood Culture - Preliminary Blood - Venous NO GROWTH AFTER 1 DAY Anaerobic Blood Culture - Preliminary NO GROWTH AFTER 1 DAY Med Orders - Current: Current Medications Acetaminophen (Tylenol) 650 mg PO Q6H PRN PRN Reason: Fever Albuterol/Ipratropium (Duoneb 3.0-0.5 Mg/3 Ml) 3 ml NEB Q4HRRT PRN PRN Reason: Shortness Of Breath/wheezing Atorvastatin Calcium (Lipitor) 40 mg PO BEDTIME [facility] Last Admin: 02/03/18 20:09 Dose: 40 mg Heparin Sodium (Porcine) (Heparin Sodium) 5,000 units SUBCUT Q8H [facility] Last Admin: 02/04/18 06:03 Dose: 5,000 units Levofloxacin/Dextrose 750 mg/ (Premix) 150 mls @ 100 mls/hr IV Q24H [facility] Last Admin: 02/03/18 15:04 Dose: 100 mls/hr Piperacillin Sod/Tazobactam (Sod 4.5 gm/ Sodium Chloride) 100 mls @ 100 mls/hr IV Q6H [facility] Last Admin: 02/04/18 11:23 Dose: 100 mls/hr Vancomycin HCl 1 gm/ Sodium (Chloride) 250 mls @ 166 mls/hr IV Q8H [facility] Methylprednisolone Sodium Succinate (Solu-Medrol) 60 mg IV Q12H [facility] Last Admin: 02/04/18 09:45 Dose: 60 mg Advair Hfa 230-21 (Mcg Inhaler) 1 each INH BID [facility] Last Admin: 02/04/18 10:08 Dose: Not Given Temazepam (Restoril) 15 mg PO BEDTIME PRN PRN Reason: Insomnia Last Admin: 02/03/18 23:50 Dose: 15 mg Vancomycin HCl (Pharmacy To Dose - Vancomycin) 0 dose .XX ASDIRECTED [facility] Discontinued Medications Atorvastatin Calcium (Lipitor) 40 mg PO BEDTIME [facility] Sodium Chloride (Normal Saline) 1,000 mls @ 100 mls/hr IV ASDIRECTED [facility] Last Admin: 02/03/18 05:50 Dose: 100 mls/hr Vancomycin HCl 1 gm/ Sodium (Chloride) 250 mls @ 166 mls/hr IV Q12H [facility] Last Infusion: 02/04/18 02:20 Dose: Infused Iopamidol (Isovue Multipack-370 (76%)) 75 ml IVPUSH ONETIME ONE Stop: 02/02/18 16:54 Last Admin: 02/02/18 16:55 Dose: 75 ml Methylprednisolone Sodium Succinate (Solu-Medrol) 60 mg IV Q6H [facility] Last Admin: 02/03/18 09:27 Dose: 60 mg Potassium Chloride (Klor-Con M20) 40 meq PO ONETIME ONE Stop: 02/03/18 13:25 Last Admin: 02/03/18 15:02 Dose: 40 meq Tuberculin PPD (Aplisol) 5 unit IDERM ONETIME ONE Stop: 02/03/18 10:02 Last Admin: 02/03/18 11:37 Dose: 5 unit
[2018-02-04] MEDS: Levofloxacin/Dextrose 5%-Water 750 MG in Premix Bag 1 BAG IV SCH (15:04)
--- NOTE | 2018-02-04 18:35 | PCM.PN ---
- General Info Date of Service: 02/04/18 Subjective Update: Patient feels better today , leucocytosis 21918 today probable secondary to steroid use Functional Status: Reports: Pain Controlled - Review of Systems General: Reports: No Symptoms, Weakness. Denies: Fever HEENT: Reports: No Symptoms Pulmonary: Reports: Cough, Sputum Cardiovascular: Reports: No Symptoms Gastrointestinal: Reports: No Symptoms Genitourinary: Reports: No Symptoms Musculoskeletal: Reports: No Symptoms Skin: Reports: No Symptoms Neurological: Reports: No Symptoms Psychiatric: Reports: No Symptoms - Patient Data Vitals - Most Recent: Last Vital Signs Temp 97.2 F 02/04/18 16:00 Pulse 79 02/04/18 16:00 Resp 18 02/04/18 16:00 BP 125/90 02/04/18 16:00 Pulse Ox 92 L 02/04/18 16:00 Weight - Most Recent: 142 lb 12.8 oz I&O - Last 24 Hours: Intake & Output 02/04/18 02/04/18 02/04/18 06:59 14:59 22:59 Intake Total 1220 700 Output Total 1240 1300 Balance -20 -600 Lab Results Last 24 Hours: Laboratory Results - last 24 hr 02/04/18 02/04/18 02/04/18 Range/Units 06:06 06:06 10:03 WBC 12.22 H (4.0-11.0) K/uL RBC 4.53 (4.50-5.90) M/uL Hgb 14.6 (13.0-17.0) g/dL Hct 42.0 (38.0-50.0) % MCV 92.7 (80.0-98.0) fL MCH 32.2 H (27.0-32.0) pg MCHC 34.8 (31.0-37.0) g/dL RDW Std Deviation 44.1 (28.0-62.0) fl RDW Coeff of Monica 13 (11.0-15.0) % Plt Count 252 (150-400) K/uL MPV 9.30 (7.40-12.00) fL Neut % (Auto) 85.4 H (48.0-80.0) % Lymph % (Auto) 4.2 L (16.0-40.0) % Towns % (Auto) 10.2 (0.0-15.0) % Eos % (Auto) 0.0 (0.0-7.0) % Baso % (Auto) 0.2 (0.0-1.5) % Neut # (Auto) 10.4 H (1.4-5.7) K/uL Lymph # (Auto) 0.5 L (0.6-2.4) K/uL Towns # (Auto) 1.3 H (0.0-0.8) K/uL Eos # (Auto) 0.0 (0.0-0.7) K/uL Baso # (Auto) 0.0 (0.0-0.1) K/uL Nucleated RBC % 0.0 /100WBC Nucleated RBCs # 0 K/uL Sodium 139 (136-148) mmol/L Potassium 4.5 (3.5-5.1) mmol/L Chloride 106 (98-107) mmol/L Carbon Dioxide 25.2 (21.0-32.0) mmol/L BUN 18 (7.0-18.0) mg/dL Creatinine 1.0 (0.8-1.3) mg/dL Est Cr Clr Drug Dosing 70.17 mL/min Estimated GFR (MDRD) > 60.0 ml/min Glucose 142 H (74-106) mg/dL Calcium 8.9 (8.5-10.1) mg/dL Vancomycin Trough 10.7 H (5.0-10.0) ug/mL Phu Results Last 24 Hours: Microbiology 02/02/18 15:17 Aerobic Blood Culture - Preliminary Blood - Venous - Lab Draw NO GROWTH AFTER 2 DAYS Anaerobic Blood Culture - Preliminary NO GROWTH AFTER 2 DAYS 02/02/18 15:15 Aerobic Blood Culture - Preliminary Blood - Venous NO GROWTH AFTER 2 DAYS Anaerobic Blood Culture - Preliminary NO GROWTH AFTER 2 DAYS 02/02/18 16:51 Gram Stain - Final Sputum - Expectorated Sputum Culture - Final Normal Respiratory Ciera Med Orders - Current: Current Medications Acetaminophen (Tylenol) 650 mg PO Q6H PRN PRN Reason: Fever Albuterol/Ipratropium (Duoneb 3.0-0.5 Mg/3 Ml) 3 ml NEB Q4HRRT PRN PRN Reason: Shortness Of Breath/wheezing Atorvastatin Calcium (Lipitor) 40 mg PO BEDTIME [facility] Last Admin: 02/03/18 20:09 Dose: 40 mg Heparin Sodium (Porcine) (Heparin Sodium) 5,000 units SUBCUT Q8H [facility] Last Admin: 02/04/18 15:03 Dose: 5,000 units Levofloxacin/Dextrose 750 mg/ (Premix) 150 mls @ 100 mls/hr IV Q24H [facility] Last Admin: 02/04/18 15:04 Dose: 100 mls/hr Piperacillin Sod/Tazobactam (Sod 4.5 gm/ Sodium Chloride) 100 mls @ 100 mls/hr IV Q6H [facility] Last Admin: 02/04/18 16:50 Dose: 100 mls/hr Vancomycin HCl 1 gm/ Sodium (Chloride) 250 mls @ 166 mls/hr IV Q8H [facility] Last Admin: 02/04/18 12:25 Dose: 166 mls/hr Methylprednisolone Sodium Succinate (Solu-Medrol) 60 mg IV Q12H [facility] Last Admin: 02/04/18 09:45 Dose: 60 mg Advair Hfa 230-21 (Mcg Inhaler) 1 each INH BID [facility] Last Admin: 02/04/18 10:08 Dose: Not Given Temazepam (Restoril) 15 mg PO BEDTIME PRN PRN Reason: Insomnia Last Admin: 02/03/18 23:50 Dose: 15 mg Vancomycin HCl (Pharmacy To Dose - Vancomycin) 0 dose .XX ASDIRECTED [facility] Discontinued Medications Atorvastatin Calcium (Lipitor) 40 mg PO BEDTIME [facility] Sodium Chloride (Normal Saline) 1,000 mls @ 100 mls/hr IV ASDIRECTED [facility] Last Admin: 02/03/18 05:50 Dose: 100 mls/hr Vancomycin HCl 1 gm/ Sodium (Chloride) 250 mls @ 166 mls/hr IV Q12H [facility] Last Admin: 02/04/18 12:25 Dose: Not Given Iopamidol (Isovue Multipack-370 (76%)) 75 ml IVPUSH ONETIME ONE Stop: 02/02/18 16:54 Last Admin: 02/02/18 16:55 Dose: 75 ml Methylprednisolone Sodium Succinate (Solu-Medrol) 60 mg IV Q6H [facility] Last Admin: 02/03/18 09:27 Dose: 60 mg Potassium Chloride (Klor-Con M20) 40 meq PO ONETIME ONE Stop: 02/03/18 13:25 Last Admin: 02/03/18 15:02 Dose: 40 meq Tuberculin PPD (Aplisol) 5 unit IDERM ONETIME ONE Stop: 02/03/18 10:02 Last Admin: 02/03/18 11:37 Dose: 5 unit - Exam General: Alert, Oriented HEENT: Pupils Equal, Pupils Reactive Neck: Supple, Trachea Midline, No JVD Lungs: Decreased Breath Sounds, Crackles, Other (fremitus) Cardiovascular: Regular Rate, Regular Rhythm GI/Abdominal Exam: Normal Bowel Sounds, Soft, Non-Tender, No Organomegaly (Male) Exam: No Hernia, Normal Inspection Back Exam: Normal Inspection Extremities: Normal Inspection Skin: Warm, Dry Neurological: No New Focal Deficit Psy/Mental Status: Alert, Normal Affect - Problem List & Annotations (1) Acute respiratory failure with hypoxia SNOMED Code(s): 91042363, 009522914 Code(s): J96.01 - ACUTE RESPIRATORY FAILURE WITH HYPOXIA Status: Acute Current Visit: Yes (2) COPD (chronic obstructive pulmonary disease) SNOMED Code(s): 43273022 Code(s): J44.9 - CHRONIC OBSTRUCTIVE PULMONARY DISEASE, UNSPECIFIED Status : Acute Current Visit: Yes (3) Pulmonary cavitary lesion SNOMED Code(s): 656317890 Code(s): J98.4 - OTHER DISORDERS OF LUNG Status: Acute Current Visit: Yes (4) Gram-negative pneumonia SNOMED Code(s): 847366501 Code(s): J15.6 - PNEUMONIA DUE TO OTHER GRAM-NEGATIVE BACTERIA Status: Suspected Current Visit: Yes (5) Pneumonia SNOMED Code(s): 295017681 Code(s): J18.9 - PNEUMONIA, UNSPECIFIED ORGANISM Status: Acute Current Visit: No - Problem List Review Problem List Initiated/Reviewed/Updated: Yes - My Orders Last 24 Hours: My Active Orders 02/04/18 11:30 Vancomycin [Vancocin] 1 gm Sodium Chloride 0.9% [Normal Saline] 250 ml IV Q8H 02/05/18 10:30 VANCOMYCIN TROUGH [CHEM] Routine - Plan Plan:: This 62 year old male admitted with acute on chronic hypoxic respiratory failure , CAP, and COPD exacerbation 1. Acute on chronic respiratory failure: Resolved, no longer needing oxygen. dyspnea is improving. Continue to monitor 2. Cavitary lesion: Chest CT revealed, "Dense consolidation left upper lobe with cavitation; rule out lung abscess., Dense consolidation left lower lobe with air bronchograms. Extensive consolidation right upper lobe, right middle lobe and right lower lobe. The above described findings are most suggestive of infection rather than neoplasm; close followup is needed to rule out underlying malignancy. Lymphadenopathy in the mediastinum probably reactive." I called [facility] in [place] regarding transfer vs recommendations on further treatment. I spoke with Dr Sheth, pulmonology. He recommends continued treatment with current regimen of Levaquin, Vancomycin and Zosyn. He does not feel like transfer is necessary since no air fluid levels are noted so no drainage is emergent and a bronchoscopy at this point would not be necessary. He recommends treating as infectious process currently and potentially with director long term care IV antibiotics. Await cultures to return and speak with ID to better manage home IV therapy. He recommends repeat chest CT to monitor improvement in 2-3 weeks and to arrange appointment with his clinic for further management. He will need workup for malignancy. He recommends obtaining 2D ECHO now to help rule out endocarditis due to multiple locations of consolidation. IF he were to decompensate or worsen, such has respiratory distress or failure or become hemodynamically unstable he would recommend transfer. Will work up for TB with AFB sputum x 3, Mantoux testing and Quantiferron ( which is unable to be sent until Tuesday). Place on airborne precautions now. Leukocytosis improved to 7,000 this morning. sputum culture pending, gram stain reveals. Moderate gram positive cocci in large clusters, clusters, gram negative rods, and gram positive cocci in chains/pairs. Continue coverage with broad spectrum antibiotics. He recently, 12/13/2017, had surgery for inguinal hernia repair and was treated for PNA in October 2017. Covering for MRSA pneumonia , possible gram negative pneumonia and anaerobes with Levaquin, Vancomycin and Zosyn. add robitussion 10 cc po tid 3. Hyponatremia: resolved with gentle hydration. Will stop IVFs today. Eating and drinking well. Monitor. 4. COPD exacerbation: Not wheezing any longer. Will decrease Solumedrol to every 12 hours and monitor. Continue Advair and Duonebs. No longer needing oxygen. VTE prophylaxis: Heparin Will change to inpatient status secondary to ruling out TB and continued IV antibiotics therapy for cavitary lesion. 5. leucocytosis secondary to streoids use
[2018-02-04] MEDS ORDERED: guaiFENesin 100 MG/5 ML Soln 10 ML UD Cup PO PRN (18:38)
[2018-02-04] MEDS: atorvaSTATin 40 MG Tab PO SCH (20:42)
[2018-02-05] MEDS: Temazepam 15 MG Cap PO PRN ×2 (00:11→23:30)
[2018-02-05] MEDS ORDERED: Calcium Carbonate 500 MG Tab.Chew PO PRN (01:57)
[2018-02-05] MEDS: Piperacillin/Tazobactam 4.5 GM in Sodium Chloride 0.9% 100 ML IV SCH ×4 (04:39→22:01)
[2018-02-05] MEDS: Heparin Sodium 5,000 Units/ML Vial SUBCUT SCH ×3 (06:12→22:00)
[2018-02-05 06:15] LABS: CHLORIDE,CL 104 mmol/L (98-107); SODIUM,NA 139 mmol/L (136-148)
[2018-02-05] MEDS: methylPREDNISolone Sodium Succinate 125 MG/2 ML SDV IV SCH (08:18)
--- NOTE | 2018-02-05 08:56 | PCM.PN ---
- General Info Date of Service: 02/05/18 - Review of Systems Systems Review Comment:: feeling better, no fevers. - Patient Data Vitals - Most Recent: Last Vital Signs Temp 35.9 C 02/05/18 04:00 Pulse 79 02/05/18 04:00 Resp 18 02/05/18 04:00 BP 125/87 02/05/18 04:00 Pulse Ox 90 L 02/05/18 04:00 Weight - Most Recent: 64.773 kg I&O - Last 24 Hours: Intake & Output 02/04/18 02/05/18 02/05/18 22:59 06:59 14:59 Intake Total 900 900 Output Total 1300 1200 Balance -400 -300 Lab Results Last 24 Hours: Laboratory Results - last 24 hr 02/04/18 02/05/18 02/05/18 Range/Units 10:03 05:47 05:47 WBC 9.21 (4.0-11.0) K/uL RBC 4.62 (4.50-5.90) M/uL Hgb 14.7 (13.0-17.0) g/dL Hct 42.8 (38.0-50.0) % MCV 92.6 (80.0-98.0) fL MCH 31.8 (27.0-32.0) pg MCHC 34.3 (31.0-37.0) g/dL RDW Std Deviation 44.1 (28.0-62.0) fl RDW Coeff of Monica 13 (11.0-15.0) % Plt Count 240 (150-400) K/uL MPV 8.80 (7.40-12.00) fL Add Manual Diff YES Neutrophils % (Manual) 80 (48.0-80.0) % Band Neutrophils % 5 % Lymphocytes % (Manual) 12 L (16.0-40.0) % Monocytes % (Manual) 3 (0.0-15.0) % Nucleated RBC % 0.0 /100WBC Absolute Seg Neuts 7.4 H (1.4-5.7) Band Neutrophils # 0.5 Lymphocytes # (Manual) 1.1 (0.6-2.4) Monocytes # (Manual) 0.3 (0.0-0.8) Nucleated RBCs # 0 K/uL Sodium 139 (136-148) mmol/L Potassium 4.3 (3.5-5.1) mmol/L Chloride 104 (98-107) mmol/L Carbon Dioxide 26.3 (21.0-32.0) mmol/L BUN 18 (7.0-18.0) mg/dL Creatinine 1.1 (0.8-1.3) mg/dL Est Cr Clr Drug Dosing 63.79 mL/min Estimated GFR (MDRD) > 60.0 ml/min Glucose 122 H (74-106) mg/dL Calcium 8.9 (8.5-10.1) mg/dL Vancomycin Trough 10.7 H (5.0-10.0) ug/mL Phu Results Last 24 Hours: Microbiology 02/02/18 15:17 Aerobic Blood Culture - Preliminary Blood - Venous - Lab Draw NO GROWTH AFTER 2 DAYS Anaerobic Blood Culture - Preliminary NO GROWTH AFTER 2 DAYS 02/02/18 15:15 Aerobic Blood Culture - Preliminary Blood - Venous NO GROWTH AFTER 2 DAYS Anaerobic Blood Culture - Preliminary NO GROWTH AFTER 2 DAYS 02/02/18 16:51 Gram Stain - Final Sputum - Expectorated Sputum Culture - Final Normal Respiratory Ciera Med Orders - Current: Current Medications Acetaminophen (Tylenol) 650 mg PO Q6H PRN PRN Reason: Fever Albuterol/Ipratropium (Duoneb 3.0-0.5 Mg/3 Ml) 3 ml NEB Q4HRRT PRN PRN Reason: Shortness Of Breath/wheezing Atorvastatin Calcium (Lipitor) 40 mg PO BEDTIME [facility] Last Admin: 02/04/18 20:42 Dose: 40 mg Calcium Carbonate/Glycine (Tums) 500 mg PO TID PRN PRN Reason: Indigestion Last Admin: 02/05/18 02:46 Dose: 500 mg Guaifenesin (Robitussin) 200 mg PO TID PRN PRN Reason: Cough Heparin Sodium (Porcine) (Heparin Sodium) 5,000 units SUBCUT Q8H [facility] Last Admin: 02/05/18 06:12 Dose: 5,000 units Levofloxacin/Dextrose 750 mg/ (Premix) 150 mls @ 100 mls/hr IV Q24H [facility] Last Admin: 02/04/18 15:04 Dose: 100 mls/hr Piperacillin Sod/Tazobactam (Sod 4.5 gm/ Sodium Chloride) 100 mls @ 100 mls/hr IV Q6H [facility] Last Admin: 02/05/18 04:39 Dose: 100 mls/hr Vancomycin HCl 1 gm/ Sodium (Chloride) 250 mls @ 166 mls/hr IV Q8H [facility] Last Admin: 02/05/18 02:44 Dose: 166 mls/hr Methylprednisolone Sodium Succinate (Solu-Medrol) 60 mg IV Q12H [facility] Last Admin: 02/05/18 08:18 Dose: 60 mg Advair Hfa 230-21 (Mcg Inhaler) 1 each INH BID [facility] Last Admin: 02/04/18 20:52 Dose: Not Given Temazepam (Restoril) 15 mg PO BEDTIME PRN PRN Reason: Insomnia Last Admin: 02/05/18 00:11 Dose: 15 mg Vancomycin HCl (Pharmacy To Dose - Vancomycin) 0 dose .XX ASDIRECTED [facility] Discontinued Medications Atorvastatin Calcium (Lipitor) 40 mg PO BEDTIME [facility] Sodium Chloride (Normal Saline) 1,000 mls @ 100 mls/hr IV ASDIRECTED [facility] Last Admin: 02/03/18 05:50 Dose: 100 mls/hr Vancomycin HCl 1 gm/ Sodium (Chloride) 250 mls @ 166 mls/hr IV Q12H [facility] Last Admin: 02/04/18 12:25 Dose: Not Given Iopamidol (Isovue Multipack-370 (76%)) 75 ml IVPUSH ONETIME ONE Stop: 02/02/18 16:54 Last Admin: 02/02/18 16:55 Dose: 75 ml Methylprednisolone Sodium Succinate (Solu-Medrol) 60 mg IV Q6H [facility] Last Admin: 02/03/18 09:27 Dose: 60 mg Potassium Chloride (Klor-Con M20) 40 meq PO ONETIME ONE Stop: 02/03/18 13:25 Last Admin: 02/03/18 15:02 Dose: 40 meq Tuberculin PPD (Aplisol) 5 unit IDERM ONETIME ONE Stop: 02/03/18 10:02 Last Admin: 02/03/18 11:37 Dose: 5 unit - Exam General: Alert, Oriented Cardiovascular: Regular Rate, Regular Rhythm GI/Abdominal Exam: Soft, Non-Tender Extremities: No Pedal Edema Skin: Warm, Dry, Intact - Problem List Review Problem List Initiated/Reviewed/Updated: Yes - My Orders Last 24 Hours: My Active Orders 02/05/18 01:57 Calcium Carbonate [Tums] 500 mg PO TID PRN - Plan Plan:: 62 yo male with pneumonia and cavitary lung lesion. We will continue IV antibiotics and will rule out TB with sputum cultures
[2018-02-05] MEDS: Advair Hfa 230-21 Mcg Inhaler INH SCH ×2 (09:03→20:55)
[2018-02-05] MEDS: Levofloxacin/Dextrose 5%-Water 750 MG in Premix Bag 1 BAG IV SCH (14:17)
[2018-02-05] MEDS: atorvaSTATin 40 MG Tab PO SCH (20:47)
[2018-02-06] MEDS: Piperacillin/Tazobactam 4.5 GM in Sodium Chloride 0.9% 100 ML IV SCH ×4 (05:08→22:42)
[2018-02-06 06:15] LABS: CHLORIDE,CL 105 mmol/L (98-107); SODIUM,NA 138 mmol/L (136-148)
[2018-02-06] MEDS: Heparin Sodium 5,000 Units/ML Vial SUBCUT SCH ×3 (06:20→22:42)
--- NOTE | 2018-02-06 08:36 | PCM.PN ---
- General Info Date of Service: 02/06/18 Admission Dx/Problem (Free Text): Admission Diagnosis/Problem Admission Diagnosis/Problem Pneumonia Subjective Update: Feeling good today, cough is lessened and is still a little productive but otherwise good. No chest pain or SOB. Reports loose BMs, going 3-4 times daily. No abdominal pain. Functional Status: Reports: Pain Controlled, Tolerating Diet, Ambulating, Urinating - Review of Systems General: Reports: No Symptoms. Denies: Fever, Fatigue, Malaise HEENT: Reports: No Symptoms. Denies: Glasses, Headaches, Sore Throat, Visual Changes Pulmonary: Reports: Cough, Sputum (yellow). Denies: Shortness of Breath, Hemoptysis Cardiovascular: Reports: No Symptoms. Denies: Chest Pain Gastrointestinal: Reports: Diarrhea, Flatus. Denies: Abdominal Pain, Nausea, Vomiting Genitourinary: Reports: No Symptoms Skin: Reports: No Symptoms Neurological: Reports: No Symptoms Psychiatric: Reports: No Symptoms - Patient Data Vitals - Most Recent: Last Vital Signs Temp 97.5 F 02/06/18 07:31 Pulse 83 02/06/18 07:31 Resp 16 02/06/18 07:31 BP 130/86 02/06/18 07:31 Pulse Ox 92 L 02/06/18 07:31 Weight - Most Recent: 64.773 kg I&O - Last 24 Hours: Intake & Output 02/05/18 02/06/18 02/06/18 22:59 06:59 14:59 Intake Total 2200 2200 Output Total 2290 3475 Balance -90 -1275 Lab Results Last 24 Hours: Laboratory Results - last 24 hr 02/05/18 02/06/18 02/06/18 Range/Units 10:12 05:54 05:54 WBC 11.84 H (4.0-11.0) K/uL RBC 4.72 (4.50-5.90) M/uL Hgb 15.3 (13.0-17.0) g/dL Hct 43.6 (38.0-50.0) % MCV 92.4 (80.0-98.0) fL MCH 32.4 H (27.0-32.0) pg MCHC 35.1 (31.0-37.0) g/dL RDW Std Deviation 44.1 (28.0-62.0) fl RDW Coeff of Monica 13 (11.0-15.0) % Plt Count 242 (150-400) K/uL MPV 8.80 (7.40-12.00) fL Add Manual Diff YES Neutrophils % (Manual) 77 (48.0-80.0) % Band Neutrophils % 2 % Lymphocytes % (Manual) 10 L (16.0-40.0) % Monocytes % (Manual) 8 (0.0-15.0) % Eosinophils % (Manual) 3 (0.0-7.0) % Nucleated RBC % 0.3 /100WBC Absolute Seg Neuts 9.1 H (1.4-5.7) Band Neutrophils # 0.2 Lymphocytes # (Manual) 1.2 (0.6-2.4) Monocytes # (Manual) 0.9 H (0.0-0.8) Eosinophils # (Manual) 0.4 (0.0-0.7) Nucleated RBCs # 0 K/uL Sodium 138 (136-148) mmol/L Potassium 3.8 (3.5-5.1) mmol/L Chloride 105 (98-107) mmol/L Carbon Dioxide 24.6 (21.0-32.0) mmol/L BUN 17 (7.0-18.0) mg/dL Creatinine 1.0 (0.8-1.3) mg/dL Est Cr Clr Drug Dosing 70.17 mL/min Estimated GFR (MDRD) > 60.0 ml/min Glucose 90 (74-106) mg/dL Calcium 8.4 L (8.5-10.1) mg/dL Vancomycin Trough 15.9 H (5.0-10.0) ug/mL Phu Results Last 24 Hours: Microbiology 02/02/18 15:17 Aerobic Blood Culture - Preliminary Blood - Venous - Lab Draw NO GROWTH AFTER 3 DAYS Anaerobic Blood Culture - Preliminary NO GROWTH AFTER 3 DAYS 02/02/18 15:15 Aerobic Blood Culture - Preliminary Blood - Venous NO GROWTH AFTER 3 DAYS Anaerobic Blood Culture - Preliminary NO GROWTH AFTER 3 DAYS Med Orders - Current: Current Medications Acetaminophen (Tylenol) 650 mg PO Q6H PRN PRN Reason: Fever Albuterol/Ipratropium (Duoneb 3.0-0.5 Mg/3 Ml) 3 ml NEB Q4HRRT PRN PRN Reason: Shortness Of Breath/wheezing Atorvastatin Calcium (Lipitor) 40 mg PO BEDTIME [facility] Last Admin: 02/05/18 20:47 Dose: 40 mg Calcium Carbonate/Glycine (Tums) 500 mg PO TID PRN PRN Reason: Indigestion Last Admin: 02/05/18 02:46 Dose: 500 mg Guaifenesin (Robitussin) 200 mg PO TID PRN PRN Reason: Cough Heparin Sodium (Porcine) (Heparin Sodium) 5,000 units SUBCUT Q8H [facility] Last Admin: 02/06/18 06:20 Dose: 5,000 units Levofloxacin/Dextrose 750 mg/ (Premix) 150 mls @ 100 mls/hr IV Q24H [facility] Last Admin: 02/05/18 14:17 Dose: 100 mls/hr Piperacillin Sod/Tazobactam (Sod 4.5 gm/ Sodium Chloride) 100 mls @ 100 mls/hr IV Q6H [facility] Last Admin: 02/06/18 05:08 Dose: 100 mls/hr Advair Hfa 230-21 (Mcg Inhaler) 1 each INH BID [facility] Last Admin: 02/05/18 20:55 Dose: Not Given Temazepam (Restoril) 15 mg PO BEDTIME PRN PRN Reason: Insomnia Last Admin: 02/05/18 23:30 Dose: 15 mg Discontinued Medications Atorvastatin Calcium (Lipitor) 40 mg PO BEDTIME [facility] Sodium Chloride (Normal Saline) 1,000 mls @ 100 mls/hr IV ASDIRECTED [facility] Last Admin: 02/03/18 05:50 Dose: 100 mls/hr Vancomycin HCl 1 gm/ Sodium (Chloride) 250 mls @ 166 mls/hr IV Q12H [facility] Last Admin: 02/04/18 12:25 Dose: Not Given Vancomycin HCl 1 gm/ Sodium (Chloride) 250 mls @ 166 mls/hr IV Q8H [facility] Last Admin: 02/06/18 03:10 Dose: 166 mls/hr Iopamidol (Isovue Multipack-370 (76%)) 75 ml IVPUSH ONETIME ONE Stop: 02/02/18 16:54 Last Admin: 02/02/18 16:55 Dose: 75 ml Methylprednisolone Sodium Succinate (Solu-Medrol) 60 mg IV Q6H [facility] Last Admin: 02/03/18 09:27 Dose: 60 mg Methylprednisolone Sodium Succinate (Solu-Medrol) 60 mg IV Q12H [facility] Last Admin: 02/05/18 08:18 Dose: 60 mg Potassium Chloride (Klor-Con M20) 40 meq PO ONETIME ONE Stop: 02/03/18 13:25 Last Admin: 02/03/18 15:02 Dose: 40 meq Tuberculin PPD (Aplisol) 5 unit IDERM ONETIME ONE Stop: 02/03/18 10:02 Last Admin: 02/03/18 11:37 Dose: 5 unit Vancomycin HCl (Pharmacy To Dose - Vancomycin) 0 dose .XX ASDIRECTED [facility] - Exam General: Alert, Oriented, Cooperative, No Acute Distress Neck: Supple Lungs: Clear to Auscultation, Normal Respiratory Effort. No: Decreased Breath Sounds, Crackles Cardiovascular: Regular Rate, Regular Rhythm GI/Abdominal Exam: Normal Bowel Sounds, Soft, Non-Tender. No: Guarding, Rigid, Rebound Extremities: Normal Inspection, Normal Range of Motion, Non-Tender, No Pedal Edema, Normal Capillary Refill Neurological: No New Focal Deficit Psy/Mental Status: Alert, Normal Affect, Normal Mood - Problem List & Annotations (1) Acute respiratory failure with hypoxia SNOMED Code(s): 02518844, 234475719 Code(s): J96.01 - ACUTE RESPIRATORY FAILURE WITH HYPOXIA Status: Resolved Current Visit: Yes (2) Pulmonary cavitary lesion SNOMED Code(s): 337373932 Code(s): J98.4 - OTHER DISORDERS OF LUNG Status: Acute Current Visit: Yes (3) Gram-negative pneumonia SNOMED Code(s): 680910635 Code(s): J15.6 - PNEUMONIA DUE TO OTHER GRAM-NEGATIVE BACTERIA Status: Suspected Current Visit: Yes (4) COPD (chronic obstructive pulmonary disease) SNOMED Code(s): 42765537 Code(s): J44.9 - CHRONIC OBSTRUCTIVE PULMONARY DISEASE, UNSPECIFIED Status : Acute Current Visit: Yes (5) Hypercholesteremia SNOMED Code(s): 34357777 Code(s): E78.00 - PURE HYPERCHOLESTEROLEMIA, UNSPECIFIED Status: Acute Current Visit: Yes (6) COPD exacerbation SNOMED Code(s): 773550518 Code(s): J44.1 - CHRONIC OBSTRUCTIVE PULMONARY DISEASE W (ACUTE) EXACERBATION Status: Acute Current Visit: Yes - Problem List Review Problem List Initiated/Reviewed/Updated: Yes - My Orders Last 24 Hours: My Active Orders 02/06/18 08:31 PICC Line Insertion [CR] Routine 02/07/18 05:11 BMP [BASIC METABOLIC PANEL,BMP] [CHEM] AM CBC WITH AUTO DIFF [HEME] AM - Plan Plan:: This 62 year old male admitted with acute on chronic hypoxic respiratory failure , CAP, and COPD exacerbation 1. Cavitary lesion: Sputum cultures returned with Normal respiratory Ciera. BC negative. Will DC Vancomycin. Continue Levaquin and Zosyn for now, Consider Invaz daily for IV therapy going home. AFB smears pending for TB. Mantoux test negative. Quantiferron pending. Will arrange for PICC line today/tomorrow. Will need correction antibiotics for cavitary lesion along with close follow up with repeat CT and follow up with Pulmonology. ECHO pending as well. Appointments arranged with Dr Sheth, pulmonology in [place] and PCP, Dr Dias. 2. COPD exacerbation: Resolved and stable. No wheezing. Continue Advair and Duonebs. VTE prophylaxis: Heparin Dispo: 2-3 days pending AFB smears.
[2018-02-06] MEDS: Advair Hfa 230-21 Mcg Inhaler INH SCH ×2 (09:29→20:30)
[2018-02-06] MEDS ORDERED: Bismuth Subsalicylate 262 MG/15 ML Susp 236 ML Bottle PO PRN (13:58)
[2018-02-06] MEDS: Levofloxacin/Dextrose 5%-Water 750 MG in Premix Bag 1 BAG IV SCH (14:50)
--- NOTE | 2018-02-06 16:33 | US ---
EXAMINATION: Fluoro and ultrasound guided left-sided PICC line placement. HISTORY: PICC line insertion. TECHNIQUE/FINDINGS: After written informed consent was obtained from the patient using ultrasound an d Fluoro guidance under aseptic conditions utilizing 1% lidocaine as local anesthesia left basilic ve in was accessed and 5 Sinhala dual lumen PICC catheter was deployed with its tip in the distal superio r vena cava. The catheter flushes and withdraws blood well. The catheter is flushed with the diluted heparin. The catheter secured well. IMPRESSION: Successful Fluoro and ultrasound guided PICC line placement.
--- NOTE | 2018-02-06 19:58 | ECHO ---
The echocardiogram report can be seen in this patient's EMR (Electronic Medical Record) in the Reports section. The echocardiogram report has been scanned into PACS and can be seen there as well. ELISA
[2018-02-06] MEDS: atorvaSTATin 40 MG Tab PO SCH (20:30)
[2018-02-07] MEDS: Temazepam 15 MG Cap PO PRN ×2 (00:06→23:15)
[2018-02-07] MEDS: Piperacillin/Tazobactam 4.5 GM in Sodium Chloride 0.9% 100 ML IV SCH ×2 (05:07→10:03)
[2018-02-07 06:55] LABS: CHLORIDE,CL 102 mmol/L (98-107); SODIUM,NA 135 mmol/L (136-148)
[2018-02-07] MEDS: Heparin Sodium 5,000 Units/ML Vial SUBCUT SCH ×3 (06:55→23:15)
[2018-02-07] MEDS: Advair Hfa 230-21 Mcg Inhaler INH SCH ×2 (08:33→20:08)
--- NOTE | 2018-02-07 10:58 | PCM.PN ---
- General Info Date of Service: 02/07/18 Admission Dx/Problem (Free Text): Admission Diagnosis/Problem Admission Diagnosis/Problem Pneumonia Subjective Update: Continues to feel better each day. Cough is improved. No shortness of breath. Up moving in the room well. Eager to be discharged home. NO chest pain or abdominal pain. Loose stools better. Functional Status: Reports: Pain Controlled, Tolerating Diet, Ambulating, Urinating - Review of Systems General: Reports: No Symptoms. Denies: Fever, Weakness, Fatigue Pulmonary: Reports: No Symptoms. Denies: Shortness of Breath Cardiovascular: Reports: No Symptoms. Denies: Chest Pain, Palpitations, Edema Gastrointestinal: Reports: No Symptoms. Denies: Diarrhea, Nausea, Vomiting Genitourinary: Reports: No Symptoms Neurological: Reports: No Symptoms Psychiatric: Reports: No Symptoms - Patient Data Vitals - Most Recent: Last Vital Signs Temp 97.3 F 02/07/18 07:52 Pulse 95 02/07/18 07:52 Resp 18 02/07/18 07:52 BP 115/74 02/07/18 07:52 Pulse Ox 92 L 02/07/18 07:52 Weight - Most Recent: 64.773 kg I&O - Last 24 Hours: Intake & Output 02/06/18 02/07/18 02/07/18 22:59 06:59 14:59 Intake Total 1000 1000 Output Total 1300 1300 Balance -300 -300 Lab Results Last 24 Hours: Laboratory Results - last 24 hr 02/07/18 02/07/18 Range/Units 06:28 06:28 WBC 13.80 H (4.0-11.0) K/uL RBC 5.03 (4.50-5.90) M/uL Hgb 16.1 (13.0-17.0) g/dL Hct 46.9 (38.0-50.0) % MCV 93.2 (80.0-98.0) fL MCH 32.0 (27.0-32.0) pg MCHC 34.3 (31.0-37.0) g/dL RDW Std Deviation 44.6 (28.0-62.0) fl RDW Coeff of Monica 13 (11.0-15.0) % Plt Count 242 (150-400) K/uL MPV 8.80 (7.40-12.00) fL Add Manual Diff YES Neutrophils % (Manual) 80 (48.0-80.0) % Band Neutrophils % 1 % Lymphocytes % (Manual) 7 L (16.0-40.0) % Monocytes % (Manual) 8 (0.0-15.0) % Eosinophils % (Manual) 4 (0.0-7.0) % Nucleated RBC % 0.0 /100WBC Absolute Seg Neuts 11.0 H (1.4-5.7) Band Neutrophils # 0.1 Lymphocytes # (Manual) 1.0 (0.6-2.4) Monocytes # (Manual) 1.1 H (0.0-0.8) Eosinophils # (Manual) 0.6 (0.0-0.7) Nucleated RBCs # 0 K/uL Sodium 135 L (136-148) mmol/L Potassium 3.9 (3.5-5.1) mmol/L Chloride 102 (98-107) mmol/L Carbon Dioxide 27.2 (21.0-32.0) mmol/L BUN 16 (7.0-18.0) mg/dL Creatinine 1.2 (0.8-1.3) mg/dL Est Cr Clr Drug Dosing 58.48 mL/min Estimated GFR (MDRD) > 60.0 ml/min Glucose 77 (74-106) mg/dL Calcium 8.4 L (8.5-10.1) mg/dL Phu Results Last 24 Hours: Microbiology 02/06/18 10:20 Campylobacter Antigen Assay - Final Stool / Feces NEGATIVE CAMPYLOBACTER AG - Final NEGATIVE FOR SHIGA TOXIN 1 - Final NEGATIVE FOR SHIGA TOXIN 2 02/02/18 15:17 Aerobic Blood Culture - Preliminary Blood - Venous - Lab Draw NO GROWTH AFTER 4 DAYS Anaerobic Blood Culture - Preliminary NO GROWTH AFTER 4 DAYS 02/02/18 15:15 Aerobic Blood Culture - Preliminary Blood - Venous NO GROWTH AFTER 4 DAYS Anaerobic Blood Culture - Preliminary NO GROWTH AFTER 4 DAYS 02/06/18 10:20 Clostridium difficile Toxin A & B - Final Stool / Feces Negative for C.Diff Toxin/AG Med Orders - Current: Current Medications Acetaminophen (Tylenol) 650 mg PO Q6H PRN PRN Reason: Fever Albuterol/Ipratropium (Duoneb 3.0-0.5 Mg/3 Ml) 3 ml NEB Q4HRRT PRN PRN Reason: Shortness Of Breath/wheezing Atorvastatin Calcium (Lipitor) 40 mg PO BEDTIME [facility] Last Admin: 02/06/18 20:30 Dose: 40 mg Bismuth Subsalicylate (Pepto Bismol) 15 ml PO Q6H PRN PRN Reason: Diarrhea Calcium Carbonate/Glycine (Tums) 500 mg PO TID PRN PRN Reason: Indigestion Last Admin: 02/05/18 02:46 Dose: 500 mg Guaifenesin (Robitussin) 200 mg PO TID PRN PRN Reason: Cough Heparin Sodium (Porcine) (Heparin Sodium) 5,000 units SUBCUT Q8H [facility] Last Admin: 02/07/18 06:55 Dose: 5,000 units Levofloxacin/Dextrose 750 mg/ (Premix) 150 mls @ 100 mls/hr IV Q24H [facility] Last Admin: 02/06/18 14:50 Dose: 100 mls/hr Piperacillin Sod/Tazobactam (Sod 4.5 gm/ Sodium Chloride) 100 mls @ 100 mls/hr IV Q6H [facility] Last Admin: 02/07/18 10:03 Dose: 100 mls/hr Advair Hfa 230-21 (Mcg Inhaler) 1 each INH BID [facility] Last Admin: 02/07/18 08:33 Dose: Not Given Temazepam (Restoril) 15 mg PO BEDTIME PRN PRN Reason: Insomnia Last Admin: 02/07/18 00:06 Dose: 15 mg Discontinued Medications Atorvastatin Calcium (Lipitor) 40 mg PO BEDTIME [facility] Sodium Chloride (Normal Saline) 1,000 mls @ 100 mls/hr IV ASDIRECTED [facility] Last Admin: 02/03/18 05:50 Dose: 100 mls/hr Vancomycin HCl 1 gm/ Sodium (Chloride) 250 mls @ 166 mls/hr IV Q12H [facility] Last Admin: 02/04/18 12:25 Dose: Not Given Vancomycin HCl 1 gm/ Sodium (Chloride) 250 mls @ 166 mls/hr IV Q8H [facility] Last Admin: 02/06/18 03:10 Dose: 166 mls/hr Iopamidol (Isovue Multipack-370 (76%)) 75 ml IVPUSH ONETIME ONE Stop: 02/02/18 16:54 Last Admin: 02/02/18 16:55 Dose: 75 ml Methylprednisolone Sodium Succinate (Solu-Medrol) 60 mg IV Q6H [facility] Last Admin: 02/03/18 09:27 Dose: 60 mg Methylprednisolone Sodium Succinate (Solu-Medrol) 60 mg IV Q12H [facility] Last Admin: 02/05/18 08:18 Dose: 60 mg Potassium Chloride (Klor-Con M20) 40 meq PO ONETIME ONE Stop: 02/03/18 13:25 Last Admin: 02/03/18 15:02 Dose: 40 meq Tuberculin PPD (Aplisol) 5 unit IDERM ONETIME ONE Stop: 02/03/18 10:02 Last Admin: 02/03/18 11:37 Dose: 5 unit Vancomycin HCl (Pharmacy To Dose - Vancomycin) 0 dose .XX ASDIRECTED [facility] - Exam General: Alert, Oriented, Cooperative, No Acute Distress Lungs: Clear to Auscultation, Normal Respiratory Effort Cardiovascular: Regular Rate, Regular Rhythm GI/Abdominal Exam: Normal Bowel Sounds, Soft, Non-Tender Extremities: Normal Inspection, Normal Range of Motion, Non-Tender, No Pedal Edema Neurological: No New Focal Deficit Psy/Mental Status: Alert, Normal Affect, Normal Mood - Problem List & Annotations (1) Acute respiratory failure with hypoxia SNOMED Code(s): 77544779, 563486148 Code(s): J96.01 - ACUTE RESPIRATORY FAILURE WITH HYPOXIA Status: Resolved Current Visit: Yes (2) Pulmonary cavitary lesion SNOMED Code(s): 948289803 Code(s): J98.4 - OTHER DISORDERS OF LUNG Status: Acute Current Visit: Yes (3) Gram-negative pneumonia SNOMED Code(s): 582659162 Code(s): J15.6 - PNEUMONIA DUE TO OTHER GRAM-NEGATIVE BACTERIA Status: Suspected Current Visit: Yes (4) COPD (chronic obstructive pulmonary disease) SNOMED Code(s): 31229929 Code(s): J44.9 - CHRONIC OBSTRUCTIVE PULMONARY DISEASE, UNSPECIFIED Status : Acute Current Visit: Yes (5) Hypercholesteremia SNOMED Code(s): 52445344 Code(s): E78.00 - PURE HYPERCHOLESTEROLEMIA, UNSPECIFIED Status: Acute Current Visit: Yes (6) COPD exacerbation SNOMED Code(s): 881003438 Code(s): J44.1 - CHRONIC OBSTRUCTIVE PULMONARY DISEASE W (ACUTE) EXACERBATION Status: Acute Current Visit: Yes - Problem List Review Problem List Initiated/Reviewed/Updated: Yes - My Orders Last 24 Hours: My Active Orders 02/06/18 10:20 CDIFF TOX A+B [OP] Routine CULTURE STOOL + CAMPY+SHIGATOX [RM] Routine 02/06/18 13:58 Bismuth Subsalicylate [Pepto Bismol] 15 ml PO Q6H PRN - Plan Plan:: This 62 year old male admitted with acute on chronic hypoxic respiratory failure , CAP, and COPD exacerbation 1. Cavitary lesion: Sputum cultures returned with Normal respiratory Ciera. BC negative. Will discontinue Levaquin and Zosyn today and start Invaz daily for IV therapy going home. AFB smears pending for TB. Mantoux test negative. Quantiferron pending. PICC line placed yesterday. Will need ch[facility] antibiotics for cavitary lesion along with close follow up with repeat CT and follow up with Pulmonology. ECHO normal no vegetations noted. Appointments arranged with Dr Sheth, pulmonology in [place] and PCP, Dr Dias. First AFB smear returned today from [facility], negative. Will await last two smears prior to discharge. 2. COPD: Stable. No wheezing. Continue Advair and Duonebs. VTE prophylaxis: Heparin Dispo: 2-3 days pending AFB smears.
[2018-02-07] MEDS: Ertapenem 1 GM in Sodium Chloride 0.9% 50 ML IV SCH (13:08)
[2018-02-07] MEDS: atorvaSTATin 40 MG Tab PO SCH (20:15)
[2018-02-08 05:46] LABS: CHLORIDE,CL 102 mmol/L (98-107); SODIUM,NA 135 mmol/L (136-148)
[2018-02-08] MEDS: Heparin Sodium 5,000 Units/ML Vial SUBCUT SCH ×3 (06:34→22:00)
--- NOTE | 2018-02-08 07:52 | PCM.PN ---
- General Info Date of Service: 02/08/18 Admission Dx/Problem (Free Text): Admission Diagnosis/Problem Admission Diagnosis/Problem Pneumonia Subjective Update: Continues to feel good today. Cough continues but is improved. SOB is better. Very eager to get out of hospital. No pain, no complaints. Functional Status: Reports: Pain Controlled, Tolerating Diet, Ambulating, Urinating - Review of Systems General: Reports: No Symptoms. Denies: Fever, Weakness, Fatigue, Malaise HEENT: Reports: No Symptoms. Denies: Headaches, Sore Throat, Visual Changes Pulmonary: Reports: Shortness of Breath (very little remains.), Cough, Sputum ( still slight amount.) Cardiovascular: Reports: No Symptoms. Denies: Chest Pain, Palpitations, Dyspnea on Exertion Gastrointestinal: Reports: No Symptoms. Denies: Abdominal Pain, Nausea, Vomiting Genitourinary: Reports: No Symptoms. Denies: Dysuria, Frequency, Burning, Pain Musculoskeletal: Reports: No Symptoms Neurological: Reports: No Symptoms Psychiatric: Reports: No Symptoms - Patient Data Vitals - Most Recent: Last Vital Signs Temp 97.5 F 02/08/18 04:00 Pulse 94 02/08/18 04:00 Resp 18 02/08/18 04:00 BP 107/74 02/08/18 04:00 Pulse Ox 89 L 02/08/18 04:00 Weight - Most Recent: 64.773 kg I&O - Last 24 Hours: Intake & Output 02/07/18 02/08/18 02/08/18 22:59 06:59 14:59 Intake Total 1150 800 Output Total 1300 1500 Balance -150 -700 Lab Results Last 24 Hours: Laboratory Results - last 24 hr 02/08/18 02/08/18 Range/Units 05:05 05:05 WBC 14.90 H (4.0-11.0) K/uL RBC 5.44 (4.50-5.90) M/uL Hgb 17.7 H (13.0-17.0) g/dL Hct 50.6 H (38.0-50.0) % MCV 93.0 (80.0-98.0) fL MCH 32.5 H (27.0-32.0) pg MCHC 35.0 (31.0-37.0) g/dL RDW Std Deviation 45.8 (28.0-62.0) fl RDW Coeff of Monica 14 (11.0-15.0) % Plt Count 283 (150-400) K/uL MPV 8.90 (7.40-12.00) fL Add Manual Diff YES Neutrophils % (Manual) 71 (48.0-80.0) % Band Neutrophils % 3 % Lymphocytes % (Manual) 17 (16.0-40.0) % Monocytes % (Manual) 6 (0.0-15.0) % Eosinophils % (Manual) 2 (0.0-7.0) % Basophils % (Manual) 1 (0.0-1.5) % Nucleated RBC % 0.0 /100WBC Absolute Seg Neuts 10.6 H (1.4-5.7) Band Neutrophils # 0.4 Lymphocytes # (Manual) 2.5 H (0.6-2.4) Monocytes # (Manual) 0.9 H (0.0-0.8) Eosinophils # (Manual) 0.3 (0.0-0.7) Basophils # (Manual) 0.1 (0.0-0.1) Nucleated RBCs # 0 K/uL Sodium 135 L (136-148) mmol/L Potassium 4.4 (3.5-5.1) mmol/L Chloride 102 (98-107) mmol/L Carbon Dioxide 25.5 (21.0-32.0) mmol/L BUN 17 (7.0-18.0) mg/dL Creatinine 1.1 (0.8-1.3) mg/dL Est Cr Clr Drug Dosing 63.79 mL/min Estimated GFR (MDRD) > 60.0 ml/min Glucose 82 (74-106) mg/dL Calcium 9.1 (8.5-10.1) mg/dL Phu Results Last 24 Hours: Microbiology 02/02/18 15:17 Aerobic Blood Culture - Final Blood - Venous - Lab Draw NO GROWTH AFTER 5 DAYS Anaerobic Blood Culture - Final NO GROWTH AFTER 5 DAYS 02/02/18 15:15 Aerobic Blood Culture - Final Blood - Venous NO GROWTH AFTER 5 DAYS Anaerobic Blood Culture - Final NO GROWTH AFTER 5 DAYS 02/06/18 10:20 Campylobacter Antigen Assay - Final Stool / Feces NEGATIVE CAMPYLOBACTER AG - Final NEGATIVE FOR SHIGA TOXIN 1 - Final NEGATIVE FOR SHIGA TOXIN 2 Med Orders - Current: Current Medications Acetaminophen (Tylenol) 650 mg PO Q6H PRN PRN Reason: Fever Albuterol/Ipratropium (Duoneb 3.0-0.5 Mg/3 Ml) 3 ml NEB Q4HRRT PRN PRN Reason: Shortness Of Breath/wheezing Atorvastatin Calcium (Lipitor) 40 mg PO BEDTIME [facility] Last Admin: 02/07/18 20:15 Dose: 40 mg Bismuth Subsalicylate (Pepto Bismol) 15 ml PO Q6H PRN PRN Reason: Diarrhea Calcium Carbonate/Glycine (Tums) 500 mg PO TID PRN PRN Reason: Indigestion Last Admin: 02/05/18 02:46 Dose: 500 mg Guaifenesin (Robitussin) 200 mg PO TID PRN PRN Reason: Cough Heparin Sodium (Porcine) (Heparin Sodium) 5,000 units SUBCUT Q8H [facility] Last Admin: 02/08/18 06:34 Dose: 5,000 units Ertapenem 1 gm/ Sodium (Chloride) 50 mls @ 100 mls/hr IV Q24H [facility] Last Admin: 02/07/18 13:08 Dose: 100 mls/hr Fluticasone/Salmeterol (Advair Diskus 250-50) 1 puff INH BID [facility] Temazepam (Restoril) 15 mg PO BEDTIME PRN PRN Reason: Insomnia Last Admin: 02/07/18 23:15 Dose: 15 mg Discontinued Medications Atorvastatin Calcium (Lipitor) 40 mg PO BEDTIME [facility] Sodium Chloride (Normal Saline) 1,000 mls @ 100 mls/hr IV ASDIRECTED [facility] Last Admin: 02/03/18 05:50 Dose: 100 mls/hr Levofloxacin/Dextrose 750 mg/ (Premix) 150 mls @ 100 mls/hr IV Q24H [facility] Last Admin: 02/06/18 14:50 Dose: 100 mls/hr Piperacillin Sod/Tazobactam (Sod 4.5 gm/ Sodium Chloride) 100 mls @ 100 mls/hr IV Q6H [facility] Last Admin: 02/07/18 10:03 Dose: 100 mls/hr Vancomycin HCl 1 gm/ Sodium (Chloride) 250 mls @ 166 mls/hr IV Q12H [facility] Last Admin: 02/04/18 12:25 Dose: Not Given Vancomycin HCl 1 gm/ Sodium (Chloride) 250 mls @ 166 mls/hr IV Q8H [facility] Last Admin: 02/06/18 03:10 Dose: 166 mls/hr Iopamidol (Isovue Multipack-370 (76%)) 75 ml IVPUSH ONETIME ONE Stop: 02/02/18 16:54 Last Admin: 02/02/18 16:55 Dose: 75 ml Methylprednisolone Sodium Succinate (Solu-Medrol) 60 mg IV Q6H [facility] Last Admin: 02/03/18 09:27 Dose: 60 mg Methylprednisolone Sodium Succinate (Solu-Medrol) 60 mg IV Q12H [facility] Last Admin: 02/05/18 08:18 Dose: 60 mg Advair Hfa 230-21 (Mcg Inhaler) 1 each INH BID [facility] Last Admin: 02/07/18 20:08 Dose: Not Given Potassium Chloride (Klor-Con M20) 40 meq PO ONETIME ONE Stop: 02/03/18 13:25 Last Admin: 02/03/18 15:02 Dose: 40 meq Tuberculin PPD (Aplisol) 5 unit IDERM ONETIME ONE Stop: 02/03/18 10:02 Last Admin: 02/03/18 11:37 Dose: 5 unit Vancomycin HCl (Pharmacy To Dose - Vancomycin) 0 dose .XX ASDIRECTED [facility] - Exam General: Alert, Oriented, Cooperative, No Acute Distress Neck: Supple Lungs: Clear to Auscultation, Normal Respiratory Effort. No: Decreased Breath Sounds Cardiovascular: Regular Rate, Regular Rhythm, No Murmurs GI/Abdominal Exam: Normal Bowel Sounds, Soft, Non-Tender Extremities: Normal Inspection, Normal Range of Motion, Non-Tender, No Pedal Edema Neurological: No New Focal Deficit Psy/Mental Status: Alert, Normal Affect, Normal Mood - Problem List & Annotations (1) Acute respiratory failure with hypoxia SNOMED Code(s): 86830452, 847409745 Code(s): J96.01 - ACUTE RESPIRATORY FAILURE WITH HYPOXIA Status: Resolved Current Visit: Yes (2) Pulmonary cavitary lesion SNOMED Code(s): 888170808 Code(s): J98.4 - OTHER DISORDERS OF LUNG Status: Acute Current Visit: Yes (3) Gram-negative pneumonia SNOMED Code(s): 189938941 Code(s): J15.6 - PNEUMONIA DUE TO OTHER GRAM-NEGATIVE BACTERIA Status: Suspected Current Visit: Yes (4) COPD (chronic obstructive pulmonary disease) SNOMED Code(s): 40732460 Code(s): J44.9 - CHRONIC OBSTRUCTIVE PULMONARY DISEASE, UNSPECIFIED Status : Acute Current Visit: Yes (5) Hypercholesteremia SNOMED Code(s): 80136217 Code(s): E78.00 - PURE HYPERCHOLESTEROLEMIA, UNSPECIFIED Status: Acute Current Visit: Yes (6) COPD exacerbation SNOMED Code(s): 827224654 Code(s): J44.1 - CHRONIC OBSTRUCTIVE PULMONARY DISEASE W (ACUTE) EXACERBATION Status: Acute Current Visit: Yes - Problem List Review Problem List Initiated/Reviewed/Updated: Yes - My Orders Last 24 Hours: My Active Orders 02/07/18 12:00 Ertapenem [INVanz] 1 gm Sodium Chloride 0.9% [Normal Saline] 50 ml IV Q24H 02/08/18 07:40 RT Post Treatment Assessment [RC] Click to Edit RT Pre-Treatment Assessment [RC] Click to Edit 02/08/18 09:00 Fluticasone/Salmeterol [Advair Diskus 250-50] 1 puff INH BID 02/09/18 05:11 BMP [BASIC METABOLIC PANEL,BMP] [CHEM] AM CBC WITH AUTO DIFF [HEME] AM - Plan Plan:: This 62 year old male admitted with acute on chronic hypoxic respiratory failure , CAP, and COPD exacerbation 1. Cavitary lesion: Sputum cultures returned with Normal respiratory Ciera. BC negative. Continue Invaz daily for IV therapy going home. 2 AFB smears pending for TB. Mantoux test negative. Quantiferron pending. PICC line in place. 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 ECHO normal no vegetations noted. Appointments arranged with Dr Sheth, pulmonology in [place] and PCP, Dr Dias. Slight Leukocytosis noted, but continues to improve, was given steroids on admission. Will monitor. 2. COPD: Stable. No wheezing. Continue Advair and Duonebs. VTE prophylaxis: Heparin Dispo: 2-3 days pending AFB smears.
[2018-02-08] MEDS: Fluticasone/Salmeterol 250-50 MCG Inhalation Powder 14/Diskus INH SCH ×2 (09:47→20:09)
[2018-02-08] MEDS: Ertapenem 1 GM in Sodium Chloride 0.9% 50 ML IV SCH (12:52)
[2018-02-08] MEDS: atorvaSTATin 40 MG Tab PO SCH (21:55)
[2018-02-09 06:08] LABS: CHLORIDE,CL 103 mmol/L (98-107); SODIUM,NA 134 mmol/L (136-148)
[2018-02-09] MEDS: Heparin Sodium 5,000 Units/ML Vial SUBCUT SCH (06:32)
--- NOTE | 2018-02-09 08:23 | PCM.DCSUM1 ---
Discharge Summary - Hospital Course Brief History: 62M with a hx of COPD, HLD was directly admitted from clinic secondary to pneumonia and COPD exacerbation. The patient states that for the past week he has been getting progressively more short of breath and a worsening cough. He has also been experiencing subjective fever/chills. Cough is productive for a whitish phlegm. He has an pulse ox at home which has been reading in the low 80s to him. He denies any chest pain, palpitations, nausea or vomiting. He was last hospitalized on 10/10/2017 for pneumonia. He has since been on scheduled Advair and PRN Albuterol which he thinks isn't effective. Clinic course: CXR - LLB consolidation with concerns of a possible neoplasm as per radiologist + small pleural effusion. CBC - leukocytosis 13k. CMP - Na 131 , Glucose 191, Alk phos 120, AST 39. DuoNeb x1. Vitals in clinic: BP 102/60, T 99.4, P 104, O2 sat 89%, 91% after neb - Discharge Data Discharge Date: 02/09/18 Discharge Disposition: Home, Self-Care 01 Condition: Good - Discharge Diagnosis/Problem(s) (1) Pulmonary cavitary lesion SNOMED Code(s): 531612556 ICD Code: J98.4 - OTHER DISORDERS OF LUNG Status: Acute Current Visit: Yes (2) Acute respiratory failure with hypoxia SNOMED Code(s): 97194246, 143724175 ICD Code: J96.01 - ACUTE RESPIRATORY FAILURE WITH HYPOXIA Status: Resolved Current Visit: Yes (3) Gram-negative pneumonia SNOMED Code(s): 031238206 ICD Code: J15.6 - PNEUMONIA DUE TO OTHER GRAM-NEGATIVE BACTERIA Status: Suspected Current Visit: Yes (4) COPD (chronic obstructive pulmonary disease) SNOMED Code(s): 72996752 ICD Code: J44.9 - CHRONIC OBSTRUCTIVE PULMONARY DISEASE, UNSPECIFIED Status : Acute Current Visit: Yes (5) Hypercholesteremia SNOMED Code(s): 57927037 ICD Code: E78.00 - PURE HYPERCHOLESTEROLEMIA, UNSPECIFIED Status: Acute Current Visit: Yes - Patient Instructions Diet: Regular Diet as Tolerated Activity: As Tolerated, No Strenuous Activities Driving: May Drive Today Showering/Bathing: May Shower Notify Provider of: Fever, Increased Pain, Swelling and Redness, Drainage, Nausea and/or Vomiting - Discharge Plan Prescriptions/Med Rec: Ertapenem [INVanz] 1 gm IV Q24H #36 vial Fluticasone/Salmeterol [Advair 250-50] 1 puff INH BID #1 diskus Temazepam [Restoril] 15 mg PO BEDTIME PRN #10 cap PRN Reason: Insomnia Home Medications: Home Meds Albuterol Sulfate 1 dose NEB ASDIRECTED PRN 10/10/17 [History] Albuterol [Ventolin HFA] 1 - 2 puff INH ASDIRECTED PRN 12/05/17 [History] atorvaSTATin Calcium [Atorvastatin Calcium] 40 mg PO BEDTIME 12/05/17 [History] atorvaSTATin [Lipitor] 40 mg PO BEDTIME 02/02/18 [History] Acetaminophen [Tylenol] 650 mg PO Q6H PRN tablet 02/09/18 [Rx] Ertapenem [INVanz] 1 gm IV Q24H #36 vial 02/09/18 [Rx] Fluticasone/Salmeterol [Advair 250-50] 1 puff INH BID #1 diskus 02/09/18 [Rx] Temazepam [Restoril] 15 mg PO BEDTIME PRN #10 cap 02/09/18 [Rx] Patient Handouts: Chronic Obstructive Pulmonary Disease Exacerbation, Easy-to- Read, Fluticasone; Salmeterol inhalation powder, Ertapenem injection, Temazepam tablets or capsules, PICC Home Care Guide, Community-Acquired Pneumonia, Adult, [id number] Referrals: Mo Dias MD [Primary Care Provider] - 02/15/18 2:00 pm Korey Sheth [Ordering Only Provider] - 03/27/18 11:00 am - Discharge Summary/Plan Comment DC Time >30 min.: No Discharge Summary/Plan Comment: Discharge Diagnoses: Pulmonary cavitary lesion Pneumonia COPD HLD Faheem was admitted and treated initially for acute on chronic respiratory failure , suspected gram negative russ pneumonia and COPD exacerbation. He was treated initially with Levaquin, with subsequent addition of Zosyn and Vancomycin. CT revealed "Dense consolidation left upper lobe with cavitation; rule out lung abscess., Dense consolidation left lower lobe with air bronchograms. Extensive consolidation right upper lobe, right middle lobe and right lower lobe. The above described findings are most suggestive of infection rather than neoplasm" . Dr Sheth, Pulomonology was consulted over the phone regarding these findings. Did not recommend transfer but recommended watermelon harvesting supervisor IV antibiotics and follow up with him. He also recommended repeat CT scan in 2-4 weeks to evaluate treatment of consolidations and cavitary lesion. TB was ruled out with 3 negative AFB smears and negative Mantoux testing. He has steadily improved during his course in the hospital. He was initially treated for COPD exacerbation but steroids were tapered and he continued to improve with IV antibiotic therapy. Sputum cultures revealed only normal respiratory luh and BC negative. He was transitioned to Invanz 1 gm IV daily for fdc IV therapy. He will have completed 6 weeks of IV therapy on March 17. He in the meantime will be set up with Pulmonology in [place] for further evaluation of these areas along with keeping in close follow up with PCP Dr Dias. he will need repeat chest CT to evaluate treatment in 2-4 weeks. I did notify Dr Dias of treatment plan. Continue Advair and rescue inhaler at home. Return to the ED or clinic if concerns should arise and was directed regarding daily IV infusion therapy. - General Info Date of Service: 02/09/18 Admission Dx/Problem (Free Text: Admission Diagnosis/Problem Admission Diagnosis/Problem Pneumonia Subjective Update: Airborn precautions removed. Very eager to be leaving hospital and is feeling very much improved since admission. he denies chest pain or dyspnea. No concerns today, except for making sure he is given directions to Infusion Center and Pulmonology clinic in [place]. Functional Status: Reports: Pain Controlled, Tolerating Diet, Ambulating, Urinating - Review of Systems General: Reports: No Symptoms. Denies: Fever, Weakness, Fatigue HEENT: Reports: No Symptoms. Denies: Headaches, Sore Throat, Visual Changes Pulmonary: Reports: Cough (intermittent), Sputum (clear to white, scant.). Denies: Shortness of Breath, Hemoptysis Cardiovascular: Reports: No Symptoms. Denies: Chest Pain, Edema Gastrointestinal: Reports: No Symptoms. Denies: Abdominal Pain, Diarrhea, Nausea, Vomiting Genitourinary: Reports: No Symptoms. Denies: Dysuria, Frequency, Burning Musculoskeletal: Reports: No Symptoms Neurological: Reports: No Symptoms Psychiatric: Reports: No Symptoms - Patient Data Vitals - Most Recent: Last Vital Signs Temp 97.2 F 02/09/18 07:00 Pulse 102 H 02/09/18 07:00 Resp 16 02/09/18 07:00 BP 109/77 02/09/18 07:00 Pulse Ox 90 L 02/09/18 07:00 Weight - Most Recent: 64.773 kg I&O - Last 24 hours: Intake & Output 02/08/18 02/09/18 02/09/18 22:59 06:59 14:59 Intake Total 1300 700 Output Total 1000 1800 Balance 300 -1100 Lab Results - Last 24 hrs: Laboratory Results - last 24 hr 02/09/18 02/09/18 Range/Units 05:34 05:34 WBC 12.07 H (4.0-11.0) K/uL RBC 5.48 (4.50-5.90) M/uL Hgb 17.9 H (13.0-17.0) g/dL Hct 50.8 H (38.0-50.0) % MCV 92.7 (80.0-98.0) fL MCH 32.7 H (27.0-32.0) pg MCHC 35.2 (31.0-37.0) g/dL RDW Std Deviation 45.8 (28.0-62.0) fl RDW Coeff of Monica 14 (11.0-15.0) % Plt Count 267 (150-400) K/uL MPV 9.00 (7.40-12.00) fL Add Manual Diff YES Neutrophils % (Manual) 66 (48.0-80.0) % Band Neutrophils % 10 % Lymphocytes % (Manual) 19 (16.0-40.0) % Monocytes % (Manual) 1 (0.0-15.0) % Eosinophils % (Manual) 4 (0.0-7.0) % Nucleated RBC % 0.0 /100WBC Absolute Seg Neuts 8.0 H (1.4-5.7) Band Neutrophils # 1.2 Lymphocytes # (Manual) 2.3 (0.6-2.4) Monocytes # (Manual) 0.1 (0.0-0.8) Eosinophils # (Manual) 0.5 (0.0-0.7) Nucleated RBCs # 0 K/uL Sodium 134 L (136-148) mmol/L Potassium 4.7 (3.5-5.1) mmol/L Chloride 103 (98-107) mmol/L Carbon Dioxide 24.7 (21.0-32.0) mmol/L BUN 17 (7.0-18.0) mg/dL Creatinine 1.0 (0.8-1.3) mg/dL Est Cr Clr Drug Dosing 70.17 mL/min Estimated GFR (MDRD) > 60.0 ml/min Glucose 101 (74-106) mg/dL Calcium 8.7 (8.5-10.1) mg/dL OTONIEL Results - Last 24 hrs: Microbiology 02/06/18 10:20 Stool Culture - Final Stool / Feces Campylobacter Antigen Assay - Final NEGATIVE CAMPYLOBACTER AG - Final NEGATIVE FOR SHIGA TOXIN 1 - Final NEGATIVE FOR SHIGA TOXIN 2 Med Orders - Current: Current Medications Acetaminophen (Tylenol) 650 mg PO Q6H PRN PRN Reason: Fever Albuterol/Ipratropium (Duoneb 3.0-0.5 Mg/3 Ml) 3 ml NEB Q4HRRT PRN PRN Reason: Shortness Of Breath/wheezing Atorvastatin Calcium (Lipitor) 40 mg PO BEDTIME [facility] Last Admin: 02/08/18 21:55 Dose: 40 mg Bismuth Subsalicylate (Pepto Bismol) 15 ml PO Q6H PRN PRN Reason: Diarrhea Calcium Carbonate/Glycine (Tums) 500 mg PO TID PRN PRN Reason: Indigestion Last Admin: 02/05/18 02:46 Dose: 500 mg Guaifenesin (Robitussin) 200 mg PO TID PRN PRN Reason: Cough Heparin Sodium (Porcine) (Heparin Sodium) 5,000 units SUBCUT Q8H [facility] Last Admin: 02/09/18 06:32 Dose: 5,000 units Ertapenem 1 gm/ Sodium (Chloride) 50 mls @ 100 mls/hr IV Q24H [facility] Last Admin: 02/08/18 12:52 Dose: 100 mls/hr Fluticasone/Salmeterol (Advair Diskus 250-50) 1 puff INH BID [facility] Last Admin: 02/08/18 20:09 Dose: 1 puff Temazepam (Restoril) 15 mg PO BEDTIME PRN PRN Reason: Insomnia Last Admin: 02/07/18 23:15 Dose: 15 mg Discontinued Medications Atorvastatin Calcium (Lipitor) 40 mg PO BEDTIME [facility] Sodium Chloride (Normal Saline) 1,000 mls @ 100 mls/hr IV ASDIRECTED [facility] Last Admin: 02/03/18 05:50 Dose: 100 mls/hr Levofloxacin/Dextrose 750 mg/ (Premix) 150 mls @ 100 mls/hr IV Q24H [facility] Last Admin: 02/06/18 14:50 Dose: 100 mls/hr Piperacillin Sod/Tazobactam (Sod 4.5 gm/ Sodium Chloride) 100 mls @ 100 mls/hr IV Q6H [facility] Last Admin: 02/07/18 10:03 Dose: 100 mls/hr Vancomycin HCl 1 gm/ Sodium (Chloride) 250 mls @ 166 mls/hr IV Q12H [facility] Last Admin: 02/04/18 12:25 Dose: Not Given Vancomycin HCl 1 gm/ Sodium (Chloride) 250 mls @ 166 mls/hr IV Q8H [facility] Last Admin: 02/06/18 03:10 Dose: 166 mls/hr Iopamidol (Isovue Multipack-370 (76%)) 75 ml IVPUSH ONETIME ONE Stop: 02/02/18 16:54 Last Admin: 02/02/18 16:55 Dose: 75 ml Methylprednisolone Sodium Succinate (Solu-Medrol) 60 mg IV Q6H [facility] Last Admin: 02/03/18 09:27 Dose: 60 mg Methylprednisolone Sodium Succinate (Solu-Medrol) 60 mg IV Q12H [facility] Last Admin: 02/05/18 08:18 Dose: 60 mg Advair Hfa 230-21 (Mcg Inhaler) 1 each INH BID [facility] Last Admin: 02/07/18 20:08 Dose: Not Given Potassium Chloride (Klor-Con M20) 40 meq PO ONETIME ONE Stop: 02/03/18 13:25 Last Admin: 02/03/18 15:02 Dose: 40 meq Tuberculin PPD (Aplisol) 5 unit IDERM ONETIME ONE Stop: 02/03/18 10:02 Last Admin: 02/03/18 11:37 Dose: 5 unit Vancomycin HCl (Pharmacy To Dose - Vancomycin) 0 dose .XX ASDIRECTED [facility] - Exam General: Reports: Alert, Oriented, Cooperative, No Acute Distress Neck: Reports: Supple Lungs: Reports: Clear to Auscultation, Normal Respiratory Effort Cardiovascular: Reports: Regular Rate, Regular Rhythm, No Murmurs GI/Abdominal Exam: Normal Bowel Sounds, Soft, Non-Tender Back Exam: Reports: Normal Inspection, Full Range of Motion Extremities: Normal Inspection, Normal Range of Motion, Non-Tender Neurological: Reports: No New Focal Deficit Psy/Mental Status: Reports: Alert, Normal Affect, Normal Mood
[2018-02-09] MEDS: Fluticasone/Salmeterol 250-50 MCG Inhalation Powder 14/Diskus INH SCH (09:03)
[2018-02-09] MEDS: Ertapenem 1 GM in Sodium Chloride 0.9% 50 ML IV SCH (11:14)
== END 2018-02-09 12:50 | disposition home or self-care (01) | DRG 133 ==
LOC: MW.CHCOHC 14:45 → MW.MS 14:47 → MW.CHCOHC 14:47 → MW.MS 14:54 → OBSVTOIN 02-03 10:03
PROVIDERS: ADMIT Internal Medicine; ATTEND Internal Medicine
PROC: 02HV33Z Insertion of Infusion Device into Superior Vena Cava, Percutaneous Approach (ICD-10-PCS; principal; 2018-02-06)
DX: J96.21 Acute and chronic respiratory failure with hypoxia (principal); J98.4 Other disorders of lung; J15.6 Pneumonia due to other Gram-negative bacteria; J44.0 Chronic obstructive pulmonary disease with (acute) lower respiratory infection; J44.1 Chronic obstructive pulmonary disease with (acute) exacerbation; E78.5 Hyperlipidemia, unspecified; E87.1 Hypo-osmolality and hyponatremia; R73.9 Hyperglycemia, unspecified; R74.0 Nonspecific elevation of levels of transaminase and lactic acid dehydrogenase [LDH]; R79.89 Other specified abnormal findings of blood chemistry; Z79.899 Other long term (current) drug therapy
CPT/HCPCS: 36415; 36569; 71270; 71270-26; 76937; 76937-26; 77001; 77001-26; 80048; 80053; 80202; 83036; 83605; 84484; 85025; 85027; 85652; 86580; 87040; 87046; 87070; 87205; 87324; 87899; 93306; 94640; 94664; A9270-GY; J1335; J1644; J1956; J2543; J2930; J3370; J7030; J7040; J7050; Q9967

== ENCOUNTER 2018-05-11 06:35 | Day surgery (SDC) | payer BC ==
[~2018-05-11 06:35] MED LIST changes: -Bupivacaine 25%/EPINEPHrine/PF 30 ML ONE; +Sodium Chloride 0.9% 10 ML Syringe FLUSH PRN; +Sodium Chloride 0.9% 2.5 ML Syringe FLUSH PRN; +ceFAZolin 1 GM in Premix Bag 1 BAG IV ONE; -ceFAZolin 2 GM in Premix Bag 1 BAG IV ONE
[2018-05-11] MEDS ORDERED: fentaNYL 100 MCG/2 ML SDV ONE (06:46)
[2018-05-11] MEDS ORDERED: Propofol 200 MG/20 ML SDV ONE (06:46)
[2018-05-11] MEDS ORDERED: Midazolam 1 MG/ML 2 ML SDV ONE (06:47)
[2018-05-11] MEDS ORDERED: Bupivacaine 0.5% 10 ML SDV ONE (07:29)
[2018-05-11] MEDS ORDERED: Iopamidol 408 MG/ML 50 ML SDV ONE (07:30)
[2018-05-11] MEDS ORDERED: Lidocaine 1% 20 ML MDV ONE (07:30)
[2018-05-11] MEDS ORDERED: Heparin Sodium 100 Units/ML 3 ML Syringe ONE (07:30)
--- NOTE | 2018-05-11 07:38 | PCM.PREANE ---
Preanesthetic Assessment - Procedure Proposed Procedure: right IJ port placement - Anesthesia/Transfusion/Family Hx Anesthesia History: Prior Anesthesia Without Reaction Family History of Anesthesia Reaction: No Transfusion History: No Prior Transfusion(s) Intubation History: Unknown Additional History: bilateral lung cancer bx proven - Review of Systems General: Weakness Pulmonary: Shortness of Breath (but can walk a mile) Cardiovascular: No Symptoms Gastrointestinal: No Symptoms Neurological: No Symptoms Other: Reports: None - Physical Assessment NPO Status Date: 05/10/18 NPO Status Time: 22:00 O2 Sat by Pulse Oximetry: 91 Respiratory Rate: 15 Vital Signs: Last Vital Signs Temp 97.7 F 05/11/18 06:55 Pulse 81 05/11/18 06:55 Resp 15 05/11/18 06:55 BP 132/88 05/11/18 06:55 Pulse Ox 91 L 05/11/18 06:55 Height: 5 ft 10 in Weight: 147 lb ASA Class: 3 Mental Status: Alert & Oriented x3 Airway Class: Mallampati = 2 Dentition: Reports: Normal Dentition Thyro-Mental Finger Breadths: 3 Mouth Opening Finger Breadths: 3 ROM/Head Extension: Full Lungs: Clear to Auscultation, Normal Respiratory Effort Cardiovascular: Regular Rate, Regular Rhythm, No Murmurs - Allergies Allergies/Adverse Reactions: Allergies Allergy/AdvReac Type Severity Reaction Status Date / Time No Known Allergies Allergy Verified 05/04/18 09:37 - Blood Blood Available: No Product(s) Available: None - Anesthesia Plan Pre-Op Medication Ordered: None - Acknowledgements Anesthesia Type Planned: General Anesthesia (LMA; vs MAC with local), MAC Pt an Appropriate Candidate for the Planned Anesthesia: Yes Alternatives and Risks of Anesthesia Discussed w Pt/Guardian: Yes Pt/Guardian Understands and Agrees with Anesthesia Plan: Yes PreAnesthesia Questionnaire HEENT History: Reports: Other (See Below) Other HEENT History: `Wears eyeglasses Cardiovascular History: Reports: High Cholesterol Respiratory History: Reports: COPD, Other (See Below) Other Respiratory History: lung cancer Genitourinary History: Reports: Other (See Below) 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 Musculoskeletal History: Reports: Fracture Oncologic (Cancer) History: Reports: Lung - Infectious Disease History Infectious Disease History: Reports: Chicken Pox, Mumps - Past Surgical History Head Surgeries/Procedures: Reports: None Respiratory Surgical History: Reports: None Musculoskeletal Surgical History: Reports: Other (See Below) Other Musculoskeletal Surgeries/Procedures:: Rt, index finger knuckle replaced R [id number], surgery for fx rt ankle with plate - SUBSTANCE USE Smoking Status *Q: Former Smoker Recreational Drug Use History: No - HOME MEDS Home Medications: Home Meds Albuterol Sulfate 1 dose NEB ASDIRECTED PRN 10/10/17 [History] atorvaSTATin [Lipitor] 40 mg PO BEDTIME 02/02/18 [History] Albuterol [Ventolin HFA] 1 - 2 puff INH ASDIRECTED PRN #1 inhaler 02/09/18 [Rx] Acetaminophen [Tylenol] 650 mg PO Q6H PRN 05/04/18 [History] Aspirin 1 tab PO DAILY 05/04/18 [History] Multivitamin [Multivitamins] 1 tab PO DAILY 05/04/18 [History] Vitamin E 400 units PO DAILY 05/04/18 [History] - CURRENT (IN HOUSE) MEDS Current Meds: Current Medications Lactated Ringer's (Ringers, Lactated) 1,000 mls @ 125 mls/hr IV ASDIRECTED ASHVIN Last Admin: 05/11/18 07:16 Dose: 125 mls/hr Sodium Chloride (Saline Flush) 10 ml FLUSH ASDIRECTED PRN PRN Reason: Keep Vein Open Sodium Chloride (Saline Flush) 2.5 ml FLUSH ASDIRECTED PRN PRN Reason: Keep Vein Open Discontinued Medications Bupivacaine HCl (Sensorcaine-Mpf 0.5%) Confirm Administered Dose 10 ml .ROUTE .STK-MED ONE Stop: 05/11/18 07:30 Fentanyl (Sublimaze) Confirm Administered Dose 100 mcg .ROUTE .STK-MED ONE Stop: 05/11/18 06:47 Heparin Sodium (Porcine) (Heparin Lock Flush 100 Units/Ml) Confirm Administered Dose 900 unit .ROUTE .STK-MED ONE Stop: 05/11/18 07:31 Cefazolin Sodium/Dextrose 1 gm (/ Premix) 50 mls @ 100 mls/hr IV ONETIME ONE Stop: 05/08/18 09:23 Lidocaine HCl (Xylocaine-Mpf 1%) Confirm Administered Dose 5 mls @ as directed .ROUTE .STK-MED ONE Stop: 05/11/18 06:57 Cefazolin Sodium/Dextrose (Ancef) Confirm Administered Dose 50 mls @ as directed .ROUTE .STK-MED ONE Stop: 05/11/18 07:07 Iopamidol (Isovue-200 (41%)) Confirm Administered Dose 50 ml .ROUTE .STK-MED ONE Stop: 05/11/18 07:31 Lidocaine HCl (Xylocaine 1%) Confirm Administered Dose 20 ml .ROUTE .STK-MED ONE Stop: 05/11/18 07:31 Midazolam HCl (Versed 1 Mg/Ml) Confirm Administered Dose 2 mg .ROUTE .STK-MED ONE Stop: 05/11/18 06:48 Propofol (Diprivan 20 Ml) Confirm Administered Dose 200 mg .ROUTE .STK-MED ONE Stop: 05/11/18 06:47
[2018-05-11] MEDS ORDERED: Dexamethasone 4 MG/ML 5 ML MDV ONE (07:46)
[2018-05-11] MEDS ORDERED: Ondansetron 4 MG/2 ML SDV ONE (07:46)
[2018-05-11] MEDS ORDERED: Phenylephrine 1% 10 MG/ML SDV ONE (08:09)
[2018-05-11] MEDS ORDERED: fentaNYL 100 MCG/2 ML SDV IVPUSH PRN (08:27)
--- NOTE | 2018-05-11 09:00 | PCM.OPNOTE ---
- General Post-Op/Procedure Note Date of Surgery/Procedure: 05/11/18 Operative Procedure(s): RIJ port a cath placement Findings: RIJ port Pre Op Diagnosis: Lung cancer Post-Op Diagnosis: Lung cancer Anesthesia Technique: General LMA Primary Surgeon: Sara Mcleod Condition: Good
--- NOTE | 2018-05-11 09:25 | PCM.POSTAN ---
POST ANESTHESIA ASSESSMENT - MENTAL STATUS Mental Status: Alert, Oriented - VITAL SIGNS SaO2: 91 (O2 NC @ 3l/m) - RESPIRATORY Respiratory Status: Respiratory Rate WNL, Airway Patent, O2 Saturation Stable - CARDIOVASCULAR CV Status: Pulse Rate WNL, Blood Pressure Stable - GASTROINTESTINAL GI Status: No Symptoms - POST OP HYDRATION Hydration Status: Adequate & Stable - OBSERVATIONS Free Text/Narrative:: His baseline SaO2 is 89-90.
--- NOTE | 2018-05-11 10:01 | CR ---
EXAMINATION: Portable chest radiograph. HISTORY: Portacatheter placement. Comparison: 03/06/2018. FINDINGS: The trachea is midline. There is a right-sided portacatheter noted with tip projecting in the SVC. No pneumothorax. Large left basilar consolidation noted with patchy right pulmonary infiltrates, not si gnificantly changed from the prior examination. Left basilar pleural effusion also noted. Osseous structures appear unremarkable. IMPRESSION: 1. Right-sided portacatheter is in good position without acute findings. 2. Table bilateral consolidations, not significantly changed from the prior radiograph.
--- NOTE | 2018-05-11 10:33 | OR ---
SURGEON: SELMA MONTOYA MD DATE OF PROCEDURE: 05/11/2018 PREOPERATIVE DIAGNOSIS: Adenocarcinoma of the lung. POSTOPERATIVE DIAGNOSIS: Adenocarcinoma of the lung. PROCEDURE PERFORMED: Right internal jugular Port-A-Cath placement. ANESTHESIA: General LMA. FLUIDS: 550 mL crystalloid. ESTIMATED BLOOD LOSS: 10 mL. FINDINGS: Placement of right internal jugular Port-A-Cath. COMPLICATIONS: None. INDICATIONS: The patient is a 62-year-old male with adenocarcinoma of the left lower lobe of his lung. He will be undergoing chemotherapy treatment and is in need of Port-A - Cath access. I explained the procedure; expected perioperative course; and risks including bleeding, infection, or damage to surrounding structures including hemothorax or pneumothorax. The patient verbalized understanding and wishes to proceed. PROCEDURE IN DETAIL: The patient was brought into the OR and placed on the OR table in supine position. A time-out was completed verifying the patient's name, age, date of , allergies, and procedure to be performed. General LMA anesthesia was induced. The patient's arms were tucked to the side, and a shoulder roll was placed under his shoulders. An ultrasound probe was used to verify the anatomy of the right neck. Identified the right internal jugular vein and the right carotid. The neck and chest were prepped and draped in the usual standard fashion. The patient was placed into Trendelenburg position. A sterile ultrasound probe was used to re-identify the vascular anatomy of the right side of the neck. I anesthetized the skin overlying the right lower neck and right upper chest with 1% lidocaine plain and 0.5% Marcaine plain. Under ultrasound guidance, a needle was placed into the right internal jugular vein. I obtained an immediate allen of venous blood. A guidewire was placed down into the needle and guided into the superior vena cava. The needle and ultrasound were removed, and the C-arm was brought in. C-arm verified placement of my guidewire in the correct location. I then secured my guidewire to the drapes and turned my attention to the right anterior chest wall. A 3-cm incision was made two fingerbreadths below the lateral clavicle using a #15 blade. Cautery was used to dissect down to the level of subcutaneous fat and create a subcutaneous pocket for the port device to go in. A tunneling needle was then used to tunnel my catheter tubing from the Port-A-Cath site on the chest up to the insertion site on the neck. A vascular sheath and dilator were then placed over the guidewire. The vein was dilated under fluoroscopic guidance. The dilator and guidewire were removed, and the catheter tubing was placed down the vascular sheath. Once the catheter tubing was in, the vascular sheath was pulled away. Fluoroscopy was used to guide the tip of the catheter into the superior vena cava. An x-ray was taken and saved. I then aspirated the end of the catheter tubing, and a good return of venous blood was obtained. The tubing was flushed with injectable saline. The tubing was then trimmed and placed onto the Port-A- Cath device at the level of the chest wall pocket. I then accessed the Port-A- Cath device and had a good return of venous blood. This was then locked with 3 mL of heparinized saline. The port was placed in the subcutaneous chest wall pocket and secured with 2-0 Prolene on either side of the Port-A-Cath device. The incision was then closed with interrupted 3-0 Vicryl in the subcutaneous fat layer, and the skin was closed with a running 4-0 Monocryl suture. The neck site was closed with interrupted 4-0 Monocryl. Steri-Strips and sterile dressings were applied. The patient tolerated the procedure well and was taken to PACU in stable condition. Post operative CXR showed the Port-A-Cath in good position no evidence of hemothorax or pneumothorax. FRANCK RAMÍREZ /[id number] ELISA
== END 2018-05-11 10:10 | disposition home or self-care (01) ==
LOC: MW.SDS 06:35
PROVIDERS: ATTEND Surgery
DX: C34.32 Malignant neoplasm of lower lobe, left bronchus or lung (principal); J44.9 Chronic obstructive pulmonary disease, unspecified; E78.5 Hyperlipidemia, unspecified; Z87.891 Personal history of nicotine dependence; Z79.82 Long term (current) use of aspirin; Z79.899 Other long term (current) drug therapy
CPT/HCPCS: 36561; 71045; 76000; C1788; J0690; J1100; J1642; J2250; J2370; J2405; J2704; J3010; J3490; J7120; Q9966

== ENCOUNTER 2022-08-05 14:42 | Inpatient (IN) | payer MEDICARE, BC ==
[2022-08-05] MEDS ORDERED: Morphine 2 MG/ML SYRINGE IVPUSH PRN (15:19)
[2022-08-05] MEDS ORDERED: Sodium Chloride 0.9% 2.5 ML Syringe FLUSH PRN (15:19)
[2022-08-05] MEDS ORDERED: Acetaminophen 325 MG Tab PO PRN (15:19)
[2022-08-05] MEDS ORDERED: Sodium Chloride 0.9% 10 ML Syringe FLUSH PRN (15:19)
[2022-08-05] MEDS ORDERED: Ondansetron 4 MG/2 ML SDV IVPUSH PRN (15:22)
[2022-08-05] MEDS ORDERED: Albuterol/Ipratropium 3.0-0.5 MG/3 ML Neb Soln NEB PRN (15:22)
[2022-08-05] MEDS ORDERED: Docusate Sodium 100 MG Cap PO PRN (15:22)
[2022-08-05] MEDS ORDERED: Sodium Chloride 0.9% 1,000 ML IV SCH (15:30)
[2022-08-05] MEDS ORDERED: Potassium Chloride 20 MEQ Tab.ER PO ONE (16:16)
[2022-08-06] MEDS ORDERED: LORazepam 1 MG Tab PO ONE (02:22)
[2022-08-06 07:52] LABS: CARBON DIOXIDE,CO2 27.3 mmol/L (21.0-32.0); POTASSIUM,K 4.2 mmol/L (3.5-5.1)
[2022-08-06] MEDS: Phosphorus #1 250 MG Tab PO SCH ×3 (12:12→23:17)
[2022-08-07] MEDS: Phosphorus #1 250 MG Tab PO SCH ×4 (05:57→23:27)
[2022-08-07 07:00] LABS: CARBON DIOXIDE,CO2 26.2 mmol/L (21.0-32.0); POTASSIUM,K 3.9 mmol/L (3.5-5.1)
[2022-08-07] MEDS: Lactated Ringers 1,000 ML IV SCH (16:42)
[2022-08-08] MEDS: Lactated Ringers 1,000 ML IV SCH (02:16)
[2022-08-08] MEDS: Phosphorus #1 250 MG Tab PO SCH ×3 (05:03→18:42)
[2022-08-08 07:30] LABS: POTASSIUM,K 3.6 mmol/L (3.5-5.1)
[2022-08-08] MEDS ORDERED: Magnesium Oxide 400 MG Tab PO ONE (07:45)
[2022-08-08] MEDS ORDERED: Furosemide 40 MG/4 ML VIAL IVPUSH ONE ×2 (11:09→19:21)
[2022-08-08] MEDS: Loperamide 2 MG Cap PO PRN (11:38)
[2022-08-08] MEDS: Levothyroxine 100 MCG Tab PO SCH (15:44)
[2022-08-08] MEDS ORDERED: TEMAZEPAM 7.5 MG PO PRN ×2 (21:00)
[2022-08-09] MEDS: Phosphorus #1 250 MG Tab PO SCH ×5 (00:33→23:56)
[2022-08-09] MEDS: Loperamide 2 MG Cap PO PRN ×2 (06:24→14:52)
[2022-08-09] MEDS: Levothyroxine 100 MCG Tab PO SCH (06:31)
[2022-08-09 06:53] LABS: CARBON DIOXIDE,CO2 28.8 mmol/L (21.0-32.0); POTASSIUM,K 3.2 mmol/L (3.5-5.1)
[2022-08-09] MEDS ORDERED: Potassium Chloride 20 MEQ Tab.ER PO ONE (08:00)
[2022-08-09] MEDS ORDERED: Sodium Chloride 0.9% 500 ML IV ONE (08:00)
[2022-08-09] MEDS: Magnesium Oxide 400 MG Tab PO SCH ×2 (08:29→20:14)
[2022-08-09] MEDS: Potassium Chloride 100 ML IV SCH ×2 (08:30→10:48)
[2022-08-09] MEDS ORDERED: Furosemide 40 MG/4 ML VIAL IVPUSH ONE (10:50)
[2022-08-09] MEDS ORDERED: LORazepam 2 MG/ML SDV IVPUSH PRN (11:02)
[2022-08-10] MEDS: Levothyroxine 100 MCG Tab PO SCH ×2 (06:14→07:44)
[2022-08-10] MEDS: Phosphorus #1 250 MG Tab PO SCH ×2 (06:14→13:08)
[2022-08-10 06:58] LABS: CARBON DIOXIDE,CO2 29.1 mmol/L (21.0-32.0); POTASSIUM,K 3.4 mmol/L (3.5-5.1)
[2022-08-10] MEDS ORDERED: Potassium Chloride 20 MEQ Tab.ER PO ONE (08:45)
[2022-08-11] MEDS: Levothyroxine 100 MCG Tab PO SCH ×2 (06:19→06:30)
[2022-08-11 06:56] LABS: CARBON DIOXIDE,CO2 31.5 mmol/L (21.0-32.0)
[2022-08-11] MEDS ORDERED: Phosphorus #1 250 MG Tab PO SCH (08:00)
[2022-08-11] MEDS ORDERED: LORazepam ORAL Concentrate 1MG/0.5ML U/D PO PRN (08:49)
[2022-08-11] MEDS ORDERED: Ondansetron 4 MG Tab.DIS PO PRN (08:51)
[2022-08-11] MEDS ORDERED: Furosemide 20 MG Tab PO ONE (08:51)
[2022-08-11] MEDS ORDERED: Lactulose Soln 10 GM/15 ML 15 ML UD Cup PO ONE (09:16)
[2022-08-11] MEDS: Morphine 10 MG/0.5 ML Oral Syringe SL PRN ×2 (15:29→19:34)
[2022-08-12] MEDS: Morphine 10 MG/0.5 ML Oral Syringe SL PRN ×2 (01:17→18:31)
[2022-08-12] MEDS ORDERED: Furosemide 20 MG/2 ML VIAL IVPUSH ONE (09:52)
== END 2022-08-13 11:00 | DRG 641 ==
LOC: MW.MS 14:42
PROVIDERS: ADMIT Student in an Organized Health Care Education/Training Program; ATTEND Student in an Organized Health Care Education/Training Program
DX: E87.1 Hypo-osmolality and hyponatremia (principal); C78.02 Secondary malignant neoplasm of left lung; C78.7 Secondary malignant neoplasm of liver and intrahepatic bile duct; R18.8 Other ascites; C34.92 Malignant neoplasm of unspecified part of left bronchus or lung; C79.51 Secondary malignant neoplasm of bone; Z20.822 Contact with and (suspected) exposure to COVID-19; C77.9 Secondary and unspecified malignant neoplasm of lymph node, unspecified; Z51.5 Encounter for palliative care; E78.00 Pure hypercholesterolemia, unspecified; J44.9 Chronic obstructive pulmonary disease, unspecified; E03.9 Hypothyroidism, unspecified; Z87.891 Personal history of nicotine dependence; Z79.899 Other long term (current) drug therapy
CPT/HCPCS: 36415; 80048; 80053; 83735; 83930; 83935; 84100; 84300; 85025; 85610; 97161-GP; 99222; 99232; 99238; A9270-GY; J1642; J1940; J3480; J3490; J7030; J7120; U0002